=== PATIENT | female | born 1960 | race Caucasian/White ===

== ENCOUNTER 2020-10-02 10:26 | Outpatient (REF) | payer OTHER, SELFPAY ==
--- NOTE | ~2020-10-02 | MM_ITS ---
EXAMINATION: MM SCREENING DIGITAL BREAST TOMOSYNTHESIS, BILATERAL CLINICAL INFORMATION: Screening. Asymptomatic. Calcifications right breast at 2 locations status post stereotactic biopsy. Anterior site showed atypical ductal hyperplasia (stereotactic biopsy 03/07/2016). Surgical biopsy 03/23/2016 showed no residual atypical ductal hyperplasia or other malignancy. The lifetime risk of breast cancer based on the Tyrer-Cuzick Model is 14%. COMPARISON: Mammography: 05/08/2019, 05/02/2018, 04/13/2017, 11/28/2016, 02/12/2016 TECHNIQUE: Digital breast tomosynthesis is performed in both the craniocaudal and mediolateral oblique views along with computer-aided detection (CAD). Synthesized 2D images are generated from the tomosynthesis. FINDINGS: There are scattered areas of fibroglandular density (ACR BI-RADS breast composition Category b). There are no significant masses, abnormal calcifications, or other abnormalities. Parenchymal pattern is similar to prior studies. There is stable scarring anterior outer right breast consistent with the prior excisional biopsy. There is a biopsy clip marker also seen mid upper outer right breast as before. Neither breast shows significant mass or developing density or interval architectural abnormality. No abnormal calcifications. The axilla and skin contours are unremarkable. MM/MM tomosynthesis screening BI IMPRESSION: No mammographic evidence of malignancy. ASSESSMENT: BI-RADS 2: Benign RECOMMENDATION: Routine annual mammography screening. This patient's information was entered into a reminder system with a target due date for their next mammogram.
== END 2020-10-02 10:27 | disposition home or self-care (01) ==
LOC: HO.MAMMO 10:26
PROVIDERS: PCP Internal Medicine; Visit Provider Internal Medicine
DX: Z12.31 Encounter for screening mammogram for malignant neoplasm of breast (principal)
CPT/HCPCS: 77063; 77067

== ENCOUNTER 2021-03-24 08:49 | Outpatient (REF) | payer OTHER, SELFPAY ==
[2021-03-24 11:23] LABS: MANUAL DIFF FLAG NO
[2021-03-24 11:27] LABS: Basophils Percent Auto 0.8 % (0-2); Eosinophils Absolute Auto 0.1 X10*3/uL (0.0-0.4); Eosinophils Percent Auto 2.3 % (0-4); Hematocrit 37.3 % (37.0-47.0); Imm Gran Abs Auto 0.04 X10*3/uL (0.00-0.03); Imm Gran Pct Auto 0.8 % (0.0-0.4); Lymphocytes Absolute Auto 0.8 X10*3/uL (1.2-4.9); Lymphocytes Percent Auto 14.4 % (20-40); Mean Corpuscular HGB Conc 32.2 g/dl (31.0-35.0); Mean Corpuscular Hemoglobin 29.8 pg (27.0-33.0); Mean Corpuscular Volume 92.6 fL (80.0-98.0); Mean Platelet Volume 9.5 fL (9.4-12.3); Monocytes Absolute Auto 0.5 X10*3/uL (0.1-1.2); Monocytes Percent Auto 10.1 % (2-11); Neutrophils Absolute Auto 3.82 x10*3/uL (2.0-8.3); Neutrophils Percent Auto 71.6 % (45-73); Platelet Count 293 X10*3/uL (160-400); Red Blood Count 4.03 X10*6/uL (4.20-5.50); Red Cell Distribution Width 12.5 % (11.0-16.0); White Blood Count 5.3 X10*3/uL (4.8-10.8)
[2021-03-24 12:14] LABS: Vitamin D 25-OH Total 41.3 ng/mL (>30)
[2021-03-24 12:16] LABS: Alanine Aminotransferase 30 U/L (0-31); Anion Gap 13 (12-20); Aspartate Amino Transferase 14 U/L (5-31); Blood Urea Nitrogen 27 mg/dL (9-16); Calcium 9.4 mg/dL (8.4-10.2); Carbon Dioxide 26 mmol/L (22-29); Chloride 107 mmol/L (96-108); Cholesterol 285 mg/dL; Estimated Glomerular Filt Rate 49; Glucose Fasting 116 mg/dL (60-99); HDL Cholesterol 50 mg/dL; LDL Cholesterol Calculated 192 mg/dl; Potassium 4.4 mmol/L (3.3-5.1); Sodium 142 mmol/L (135-145); Triglycerides 216 mg/dL
== END 2021-03-24 08:50 | disposition home or self-care (01) ==
LOC: HO.HMGCLDS 08:49
PROVIDERS: PCP Internal Medicine; Visit Provider Internal Medicine
DX: Z00.01 Encounter for general adult medical examination with abnormal findings (principal); E78.5 Hyperlipidemia, unspecified; I10 Essential (primary) hypertension; Z78.0 Asymptomatic menopausal state; Z85.42 Personal history of malignant neoplasm of other parts of uterus
CPT/HCPCS: 36415; 80048; 80061; 82306; 84450; 84460; 85025

== ENCOUNTER 2021-10-03 14:22 | Outpatient (REF) | payer OTHER, SELFPAY ==
--- NOTE | ~2021-10-03 | MM_ITS ---
EXAMINATION: MM SCREENING DIGITAL BREAST TOMOSYNTHESIS, BILATERAL CLINICAL INFORMATION: Screening. Asymptomatic. Calcifications right breast at 2 locations status post stereotactic biopsy. Anterior site showed atypical ductal hyperplasia (stereotactic biopsy 03/07/2016). Surgical biopsy 03/23/2016 showed no residual atypical ductal hyperplasia or other malignancy. The lifetime risk of breast cancer based on the Tyrer-Cuzick Model is 6%. COMPARISON: Mammography: 10/02/2020, 05/08/2019, 05/02/2018 TECHNIQUE: Digital breast tomosynthesis is performed in both the craniocaudal and mediolateral oblique views along with computer-aided detection (CAD). Synthesized 2D images are generated from the tomosynthesis. FINDINGS: There are scattered areas of fibroglandular density (ACR BI-RADS breast composition Category b). There are no significant masses, abnormal calcifications, or other abnormalities. Breast tissue composition borders on heterogeneously dense. There is no developing density. Postsurgical changes again noted on right with some minor stable scarring upper outer quadrant and also right upper outer quadrant biopsy clip marker. MM/MM tomosynthesis screening BI IMPRESSION: No mammographic evidence of malignancy. Post surgical changes upper outer right breast. ASSESSMENT: BI-RADS 2: Benign RECOMMENDATION: Routine annual mammography screening. This patient's information was entered into a reminder system with a target due date for their next mammogram.
== END 2021-10-03 14:23 | disposition home or self-care (01) ==
LOC: HO.MAMMO 14:22
PROVIDERS: Visit Provider Internal Medicine
DX: Z12.31 Encounter for screening mammogram for malignant neoplasm of breast (principal)
CPT/HCPCS: 77063; 77067

== ENCOUNTER 2022-03-27 08:50 | Outpatient (REF) | payer OTHER, SELFPAY ==
[2022-03-27 12:06] LABS: Alanine Aminotransferase 18 U/L (0-31); Alkaline Phosphatase 94 U/L (39-117); Anion Gap 17 (12-20); Aspartate Amino Transferase 16 U/L (5-31); Bilirubin Total 0.3 mg/dL (0.0-1.0); Blood Urea Nitrogen 22 mg/dL (9-16); Calcium 8.2 mg/dL (8.4-10.2); Carbon Dioxide 22 mmol/L (22-29); Chloride 109 mmol/L (96-108); Estimated Glomerular Filt Rate 52; Glucose Fasting 112 mg/dL (60-99); Potassium 3.8 mmol/L (3.3-5.1); Sodium 144 mmol/L (135-145); Total Protein 6.6 g/dL (6.5-8.0)
[2022-03-27 12:38] LABS: Folate 11.4 ng/mL (> or = 4.0); Vitamin B12 1853 pg/mL (200-900)
== END 2022-03-27 08:51 | disposition home or self-care (01) ==
LOC: HO.HMGCLDS 08:50
PROVIDERS: PCP Internal Medicine; Visit Provider Internal Medicine
DX: Z00.01 Encounter for general adult medical examination with abnormal findings (principal); E78.2 Mixed hyperlipidemia; F41.1 Generalized anxiety disorder; I10 Essential (primary) hypertension; M85.80 Other specified disorders of bone density and structure, unspecified site; S32.040A Wedge compression fracture of fourth lumbar vertebra, initial encounter for closed fracture; Z85.42 Personal history of malignant neoplasm of other parts of uterus
CPT/HCPCS: 36415; 80053; 82607; 82746

== ENCOUNTER 2022-04-19 10:13 | Outpatient (REF) | payer OTHER, SELFPAY ==
--- NOTE | ~2022-04-19 | MM_ITS ---
EXAMINATION: BONE DENSITOMETRY CLINICAL INDICATION: Wedge compression fracture of 4th lumbar vertebra. COMPARISON: None (current study represents initial baseline exam). TECHNIQUE: Using a [employer]aast DXA System (software version: 13.1) manufactured by [employer], dual-energy x-ray absorptiometry was performed of the lumbar spine and left hip. The images are of good technical quality. Summary results are attached. FINDINGS: AP SPINE L1-L2 (excluding L3 and L4): The data of L1-L4 has been changed to exclude the L3 and L4 vertebral bodies, because degenerative changes at these levels as well as L4 compression deformity which may cause overestimation of lumbar spine density. BMD 0.629 g/cm2, Z-score -2.1, T-score -2.9, osteoporosis. LEFT FEMUR, NECK: BMD 0.787 g/cm2, Z-score -1.3, T-score -1.8, osteopenia. LEFT FEMUR, TOTAL: BMD 0.872 g/cm2, Z-score -1.9, T-score -2.4, osteopenia. IDENTIFIED RISK FACTORS: Menopause, hysterectomy, history of fracture (adult), bilateral oophorectomy. HISTORY OF FRACTURE: Pelvis, spine. MEDICATIONS: Vitamin D. MM/XR DEXA axial skeleton IMPRESSION: 1. DIAGNOSIS: Osteoporosis based on the lowest T-score value of -2.9 in the lumbar spine applying World Health Organization criteria. 2. 10-YEAR FRACTURE RISK PREDICTION, FRAX: According to the guidelines, FRAX calculation should only be performed on patients in the osteopenia bone density category. Therefore, FRAX was not performed on this patient. 3. Treatment Recommendations: NOF guidelines recommend consideration for treatment in postmenopausal women and men age 50 and older presenting with the following: -A hip or vertebral (clinical or morphometric) fracture. -T-score less than or equal to -2.5 at the femoral neck or spine after appropriate evaluation to exclude secondary causes. -Low bone mass at the hip or spine and a 10-year fracture probability by FRAX of greater than or equal to 3% for hip fracture or greater than or equal to 20% for major osteoporotic fracture based on the [place] adapted WHO algorithm. 4. Other Recommendations: All treatment decisions require clinical judgment and consideration of individual patient factors, including patient preferences, comorbidities, previous drug use, risk factors not captured in the FRAX model (e.g. frailty, falls, vitamin D deficiency, increased bone turnover, interval significant decline in bone density) and possible under or overestimation of fracture risk by FRAX. Additional medical evaluation for secondary cause of low bone mineral density may be appropriate. FUTURE SCAN RECOMMENDATION: People with diagnosed cases of osteoporosis or at high risk for fracture should have regular bone mineral density tests. For patients eligible for Medicare, routine testing is allowed once every 2 years. The testing frequency can be increased to one year for patients who have rapidly progressing disease, those who are receiving or discontinuing medical therapy to restore bone mass, or have additional risk factors.
== END 2022-04-19 10:14 | disposition home or self-care (01) ==
LOC: HO.MAMMO 10:13
PROVIDERS: Visit Provider Internal Medicine
DX: Z13.820 Encounter for screening for osteoporosis (principal); M85.80 Other specified disorders of bone density and structure, unspecified site; S32.040A Wedge compression fracture of fourth lumbar vertebra, initial encounter for closed fracture; Z92.3 Personal history of irradiation; Z78.0 Asymptomatic menopausal state
CPT/HCPCS: 77080

== ENCOUNTER → 2022-05-12 14:52 | Outpatient (BNVA) | payer OTHER, SELFPAY | PROVIDERS: PCP Internal Medicine; Visit Provider Internal Medicine Endocrinology, Diabetes & Metabolism | DX: Z12.31 Encounter for screening mammogram for malignant neoplasm of breast (principal) ==

== ENCOUNTER 2022-07-21 10:39 | Outpatient (REF) | payer OTHER, SELFPAY ==
[2022-07-21 14:01] LABS: MANUAL DIFF FLAG NO
[2022-07-21 14:38] LABS: Basophils Percent Auto 0.6 % (0-2); Eosinophils Percent Auto 0.2 % (0-4); Hemoglobin 12.9 g/dl (12.0-16.0); Imm Gran Abs Auto 0.02 X10*3/uL (0.00-0.03); Imm Gran Pct Auto 0.4 % (0.0-0.4); Lymphocytes Absolute Auto 0.8 X10*3/uL (1.2-4.9); Lymphocytes Percent Auto 17.3 % (20-40); Mean Corpuscular HGB Conc 33.1 g/dl (31.0-35.0); Mean Corpuscular Hemoglobin 29.6 pg (27.0-33.0); Mean Corpuscular Volume 89.4 fL (80.0-98.0); Mean Platelet Volume 9.8 fL (9.4-12.3); Monocytes Absolute Auto 0.4 X10*3/uL (0.1-1.2); Monocytes Percent Auto 9.2 % (2-11); Neutrophils Absolute Auto 3.4 x10*3/uL (2.0-8.3); Neutrophils Percent Auto 72.3 % (45-73); Platelet Count 243 X10*3/uL (160-400); Red Blood Count 4.36 X10*6/uL (4.20-5.50); Red Cell Distribution Width 13.1 % (11.0-16.0); White Blood Count 4.7 X10*3/uL (4.8-10.8)
[2022-07-21 14:46] LABS: Estimated Average Glucose 120 mg/dL; Hemoglobin A1c % 5.8 %
[2022-07-21 15:13] LABS: Albumin Level 3.9 g/dL (3.5-5.0); Calcium 8.2 mg/dL (8.4-10.2); Cholesterol 230 mg/dL; HDL Cholesterol 53 mg/dL; LDL Cholesterol Calculated 142 mg/dl; Phosphorus 3.2 mg/dL (2.7-4.5); Triglycerides 177 mg/dL; Vitamin D 25-OH Total 47.6 ng/mL (>30)
[2022-07-24 23:33] LABS: Prot Elec - Albumin 3.6 g/dL (3.8-4.8); Prot Elec - Alpha1 0.3 g/dL (0.2-0.3); Prot Elec - Alpha2 0.8 g/dL (0.5-0.9); Prot Elec - Beta 1 0.5 g/dL (0.4-0.6); Prot Elec - Beta 2 0.3 g/dL (0.2-0.5); Prot Elec - Gamma 0.8 g/dL (0.8-1.7); Prot Elec - Total Protein 6.3 g/dL (6.1-8.1)
== END 2022-07-21 10:40 | disposition home or self-care (01) ==
LOC: HO.HMGCLDS 10:39
PROVIDERS: Absent Provider Internal Medicine Endocrinology, Diabetes & Metabolism; PCP Internal Medicine; Visit Provider Internal Medicine
DX: M81.0 Age-related osteoporosis without current pathological fracture (principal); E78.2 Mixed hyperlipidemia; N95.9 Unspecified menopausal and perimenopausal disorder; R73.01 Impaired fasting glucose; S32.040A Wedge compression fracture of fourth lumbar vertebra, initial encounter for closed fracture; I10 Essential (primary) hypertension
CPT/HCPCS: 36415; 80061; 82040; 82306; 82310; 83036; 84100; 84165; 85025; 86335

== ENCOUNTER 2022-07-24 10:30 | Outpatient (REF) | payer OTHER, SELFPAY ==
[2022-07-24 12:36] LABS: Creatinine, mg/dL 106.29
[2022-07-24 15:13] LABS: Creatinine, 24Hr Urine 0.6 G/Day (1.0-2.0); Total Volume 24 Hour Urine 525 mL
[2022-07-25 11:49] LABS: Calcium (PTHI) 8.3 mg/dL (8.6-10.4); PTHI 69 pg/mL (16-77)
[2022-07-26 18:39] LABS: Calcium, 24 Hr Urine 4 mg/24 h; Calcium/Creatinine Ratio 7 mg/g creat (30-275); Creatinine 24Hr Urine 0.52 g/24 h (0.50-2.15)
== END 2022-07-24 10:31 | disposition home or self-care (01) ==
LOC: HO.HMGCLDS 10:30
PROVIDERS: PCP Internal Medicine; Visit Provider Internal Medicine Endocrinology, Diabetes & Metabolism
DX: M85.80 Other specified disorders of bone density and structure, unspecified site (principal); M81.0 Age-related osteoporosis without current pathological fracture
CPT/HCPCS: 36415; 82340; 82570; 83970

== ENCOUNTER → 2022-09-05 16:24 | Outpatient (BNVA) | payer OTHER, SELFPAY | PROVIDERS: PCP Internal Medicine; Visit Provider Internal Medicine Endocrinology, Diabetes & Metabolism | DX: M81.0 Age-related osteoporosis without current pathological fracture (principal) | CPT/HCPCS: 99212 ==

== ENCOUNTER 2022-11-29 12:12 | Outpatient (REF) | payer OTHER, SELFPAY ==
[2022-11-29 14:33] LABS: Albumin Level 3.8 g/dL (3.5-5.0); Calcium 8.9 mg/dL (8.4-10.2)
== END 2022-11-29 12:13 | disposition home or self-care (01) ==
LOC: HO.HMGCLDS 12:12
PROVIDERS: PCP Internal Medicine; Visit Provider Internal Medicine Endocrinology, Diabetes & Metabolism
DX: M81.0 Age-related osteoporosis without current pathological fracture (principal)
CPT/HCPCS: 36415; 82040; 82310

== ENCOUNTER 2022-12-04 12:57 | Outpatient (AMB) | payer OTHER, SELFPAY ==
--- NOTE | 2022-12-04 13:07 | MHC.OFFVIS ---
Intake Vital Signs 12/04/22 13:09 Height 5 ft 1 in Weight 218 lb 4.122 oz BMI 41.2 BP 132/82 Blood Pressure Location Lt brachial Position Sitting Pulse 83 Pulse Source Pulse Oximeter Pulse Oximetry (%) 93 Oxygen Delivery Method Room Air Intake Visit Reasons: f/u osteoporosis /hypocalcemia Intake Note: Patient present for Osteoporosis and Hypocalcemia follow up visit. Tanning Wheel Filler Required: No Allergies No Known Allergies [No Known Allergies*] Allergy (Verified 12/04/22 13:10) Medication List - Last Reconciled 12/04/22 by Maxi Manley MD amlodipine 5 mg PO DAILY aspirin (Adult Low Dose Aspirin) 81 mg PO DAILY cholecalciferol (vitamin D3) 50 mcg PO DAILY cyanocobalamin (vitamin B-12) 3,000 mcg PO DAILY [full right leg compression wrap fax to [phone] NS] paroxetine HCl 30 mg PO QAM rosuvastatin 5 mg PO Q2D 90 days HPI HPI Comments History of Present Illness Details 62 YO Female with PMHx endometrial Ca in past with chemo and RT treated at [facility] . RT in [id number] /chemo 2019 is seen in consultation at the request of PCP for Osteoporosis. First diagnosed in recently . Not Received treatment in the past History of pathologic fracture wedge compression fx of L4 Fx of R pubic symphis . Underwent biopsy of L4 with no metastasis detected Has several servings of dietary calcium per day in the form of milk or cheese . Not Takes Calcium supplement Takes 2000 IU of Vitamin D daily. Takes PPI Prilosec , anticoagulant, -antiepileptic or -glucocorticoid medication. Does weight bearing exercise 2 days per week in the form of swimming . 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 UTD on dental cleanings and sees dentist every 6 months. No planned upcoming dental work or extractions. Dexa 04/19/22 FINDINGS: AP SPINE L1-L2 (excluding L3 and L4): The data of L1-L4 has been changed to exclude the L3 and L4 vertebral bodies, because degenerative changes at these levels as well as L4 compression deformity which may cause overestimation of lumbar spine density. BMD 0.629 g/cm2, Z-score -2.1, T-score -2.9, osteoporosis. LEFT FEMUR, NECK: BMD 0.787 g/cm2, Z-score -1.3, T-score -1.8, osteopenia. LEFT FEMUR, TOTAL: BMD 0.872 g/cm2, Z-score -1.9, T-score -2.4, osteopenia. IDENTIFIED RISK FACTORS: Menopause, hysterectomy, history of fracture (adult), bilateral oophorectomy. HISTORY OF FRACTURE: Pelvis, spine. MEDICATIONS: Vitamin D. MM/XR DEXA axial skeleton IMPRESSION: 1. DIAGNOSIS: Osteoporosis based on the lowest T-score value of -2.9 in the lumbar spine applying World Health Organization criteria.? DXA dated []: Labs: Secondary workup was negative except for low serum calcium with normal 25 hydroxy vitamin-D and low 24 hour urine for calcium. Repeat calcium on calcium supplementation was normal [facility] Medical History Annual visit for general adult medical examination with abnormal findings Compression fracture of L4 vertebra Dyslipidemia Endometrial carcinoma Essential hypertension Fracture of pubic ramus Generalized anxiety disorder Hx of cancer of uterus Hx of radiation therapy Lymphedema Mixed dyslipidemia Osteopenia Osteoporosis of lumbar spine Surgical History History of lumpectomy of right breast History of total abdominal hysterectomy and bilateral salpingo-oophorectomy Family History Father Myocardial infarction HTN (hypertension) CVD (cardiovascular disease) Mother HTN (hypertension) Brother No problems noted. Son Mental health disorder Substance use disorder Daughter No problems noted. Social History Household Members: Spouse Household Members Other:: Housing: House Alcohol intake: current Alcohol intake frequency: a few times a month Patient Tobacco Use Status: Former Tobacco user (7 years ago ) Tobacco use type: Cigarette Cigarette Packs Per Day: 1 Years Smoked: 30 years e-Cigarette/Vaping Use: Never Used Current occupational status: unemployed Cognitive needs: No Hearing needs: No Vision needs: Yes Physical Exam Vital Signs: Last Vital Signs Pulse 83 12/04/22 13:09 BP 132/82 12/04/22 13:09 Pulse Ox 93 12/04/22 13:09 Oxygen Delivery Method Room Air 12/04/22 13:09 BMI result Body Mass Index 41.2 Assessment & Plan Assessment & Plan (1) Osteoporosis of lumbar spine: Code(s): M81.0 - Age-related osteoporosis without current pathological fracture Plan: This is a 62-year-old white female with a history of osteoporosis and compression fracture of L4 and pelvic fracture in the setting of endometrial cancer with chemo and radiation therapy. Secondary workup revealed low serum calcium and low 24 hour urine for calcium. Metastases had ruled out. The plan is to prescribe Reclast 5 mg IV yearly. Will need to check a basic metabolic panel with calcium level within week prior to infusion Coding Level of Care Code Est Pt Level 3 (13076) Diagnoses Osteoporosis of lumbar spine M81.0
[2022-12-04 13:09] VITALS: BP 132/82; PULSE 83; O2SAT 93; BMI 41.2
== END 2022-12-04 13:40 | disposition home or self-care (01) ==
PROVIDERS: PCP Internal Medicine; Referring Provider Internal Medicine; Visit Provider Internal Medicine Endocrinology, Diabetes & Metabolism
DX: M81.0 Age-related osteoporosis without current pathological fracture (principal)
CPT/HCPCS: 99213

== ENCOUNTER → 2022-12-04 12:57 | Outpatient (BNVA) | payer OTHER, SELFPAY | PROVIDERS: Visit Provider Internal Medicine Endocrinology, Diabetes & Metabolism | DX: M81.0 Age-related osteoporosis without current pathological fracture (principal) | CPT/HCPCS: 99212 ==

== ENCOUNTER 2022-12-18 11:31 | Outpatient (REF) | payer OTHER, SELFPAY ==
[2022-12-18 14:37] LABS: Albumin Level 3.9 g/dL (3.5-5.0); Anion Gap 17 (12-20); Blood Urea Nitrogen 18 mg/dL (9-16); Calcium 7.9 mg/dL (8.4-10.2); Carbon Dioxide 23 mmol/L (22-29); Chloride 107 mmol/L (96-108); Estimated Glomerular Filt Rate 48; Glucose Random 106 mg/dL (60-115); Sodium 143 mmol/L (135-145)
== END 2022-12-18 11:32 | disposition home or self-care (01) ==
LOC: HO.HMGCLDS 11:31
PROVIDERS: PCP Internal Medicine; Visit Provider Internal Medicine Endocrinology, Diabetes & Metabolism
DX: M85.80 Other specified disorders of bone density and structure, unspecified site (principal)
CPT/HCPCS: 36415; 80048; 82040; 82310

== ENCOUNTER 2023-02-02 09:11 | Outpatient (AMB) | payer OTHER, SELFPAY ==
[2023-02-02 09:19] VITALS: BP 138/80; PULSE 80; O2SAT 98; BMI 37.2
--- NOTE | 2023-02-02 09:19 | A.OFFPC_ITS ---
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: No Accompanied by: Self / Same As Patient Allergies No Known Allergies [No Known Allergies*] Allergy (Verified 02/13/23 00:32) Medication List - Last Reconciled 02/13/23 by Amy Schultz MD amlodipine 5 mg PO DAILY aspirin (Adult Low Dose Aspirin) 81 mg PO DAILY cholecalciferol (vitamin D3) 50 mcg PO DAILY cyanocobalamin (vitamin B-12) 3,000 mcg PO DAILY famotidine 40 mg PO DAILY [full right leg compression wrap fax to [phone] NS] magnesium oxide 500 mg PO DAILY paroxetine HCl 30 mg PO QAM rosuvastatin 5 mg PO Q2D 90 days Tobacco use date assessed: 10/20/22 Dental Screening Dental Screen Date: 02/02/23 Did you have a dental visit in the last 12 months?: Yes Did you have a dental problem in the last 6 months where you did not have access to dental care?: No Was dental information given to patient?: Patient has dentist HPI annual PE HPI Details 63-year-old lady with history of endomet rial carcinoma with lymphedema, osteoporosis of lumbar spine, history of fracture of pubic ramus and compression fracture of L4 vertebra, has mixed dyslipidemia, hypertension and generalized anxiety disorder, here today for her physical exam. Up-to-date with her bone density scan done last year, but is overdue to get her screening mammogram, missed her appointment for this year, will reschedule.. She is currently being seen by endocrine clinic, with regards to her osteoporosis, plan is to start IV Reclast. States that she has been feeling well, with no new complaints at present time. [facility] Medical History (Updated 02/13/23 @ 00:55 by Amy Schultz MD) Hypomagnesemia Colon cancer screening Lymphedema Osteoporosis of lumbar spine Hx of radiation therapy Osteopenia Annual visit for general adult medical examination with abnormal findings Fracture of pubic ramus Compression fracture of L4 vertebra Mixed dyslipidemia Essential hypertension Hx of cancer of uterus Endometrial carcinoma Dyslipidemia Generalized anxiety disorder Surgical History History of lumpectomy of right breast History of total abdominal hysterectomy and bilateral salpingo-oophorectomy Family History Father Myocardial infarction HTN (hypertension) CVD (cardiovascular disease) Mother HTN (hypertension) Brother No problems noted. Son Mental health disorder Substance use disorder Daughter No problems noted. Social History Household Members: Spouse Household Members Other:: Housing: House Alcohol intake: current Alcohol intake frequency: a few times a month Patient Tobacco Use Status: Former Tobacco user Tobacco use type: Cigarette Cigarette Packs Per Day: 1 Years Smoked: 30 years e-Cigarette/Vaping Use: Never Used Current occupational status: unemployed Cognitive needs: No Hearing needs: No Vision needs: Yes Questionnaire PHQ-9 Over the last 2 weeks, how often have you been bothered by any of the following problems? Depression Screening Interpretation: Negative Source: Developed by Drs. Maxi Liu, Linh Davis, Gumaro Huston and colleagues, with an educational evangelist from [employer]. Thrive Questionnaire Date Thrive assessed: 10/20/22 I am a: Patient What is your living situation today?: I have a steady place to live Within the past 12 months, did the food you bought not last and you didn't have the money to get more?: Never true Within the past 12 months, did you worry whether your food would run out before you got money to buy more?: Never true Please select the resources that you would like help with: None AUDIT C Alcohol Use Questionnaire (AUDIT-C) 1. How often do you have a drink containing alcohol?: Monthly or less 2. How many drinks containing alcohol do you have on a typical day when you are drinking?: 1 or 2 3. How often do you have six or more drinks on one occasion?: Never Total Score: 1 YANY-7 AMB Questionnaire YANY-7 Date YANY - 7 assessed: 10/20/22 Feeling nervous, anxious, or on edge: 1 = Several days Not being able to stop or control worryin = Several days Worrying too much about different things: 1 = Several days Trouble relaxin = Not at all Being so restless that it is hard to sit still: 0 = Not at all Becoming easily annoyed or irritable: 0 = Not at all Feeling afraid as if something awful might happen: 1 = Several days Total YANY-7 score (0-4 normal; 5-9 mild; 10-14 moderate; 15-21 severe): 4 Source: Developed by Drs. Maxi Liu, Linh Davis, Gumaro Huston and colleagues, with an educational evangelist from [employer]. 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 ENT Reports Normal hearing present, Denies dizziness, Denies headache(s), Denies nasal congestion, Denies nasal discharge and Denies sore throat Card Denies chest pain, Reports leg edema (Diffuse mild swelling in right lower extremity), Denies lightheadedness, Denies palpitations and Denies dyspnea Resp Denies chest congestion, Denies cough, Denies dyspnea and Denies wheezing GI Denies abdominal pain, Denies change in bowel habits and Denies heartburn Details: Goes to [facility] for every 6 months pelvic follow-up with Pap Reports urinary incontinence, Denies vaginal discharge and Denies vaginal pruritus Musc Reports back pain (Recurrent low back pain), Denies muscle weakness, Denies numbness, Reports radiating pain into limb and Denies stiffness Skin/Breast Denies breast swelling, Denies breast pain, Denies breast mass, Denies dry skin, Denies lesions and Denies rash Neuro Reports Normal hearing present, Denies behavioral changes, Denies dizziness, De nies headache(s), Denies numbness, Denies Sensory deficit (Neuro) and Denies weakness Psych Denies anxiety (Controlled on present treatment), Denies behavioral changes, Denies depression, Denies difficulty concentrating and Denies anhedonia Endo Denies fatigue, Denies polydipsia, Denies polyuria and Denies palpitations Mahin/Lymph Denies easy bruising Aller/Immun Denies seasonal rhinorrhea and Denies wheezing Physical exam (Primary Care) Vital Signs: Last Vital Signs Pulse 80 02/02/23 09:19 BP 138/80 02/02/23 09:19 Pulse Ox 98 02/02/23 09:19 BMI result Body Mass Index 37.2 Tobacco/Smoking Status: Tobacco use Status Tobacco use date assessed 10/20/22 02/02/23 09:22 Patient Tobacco Use Status Former Tobacco user 02/02/23 09:22 Tobacco use type Cigarette 02/02/23 09:22 e-Cigarette/Vaping Use Never Used 02/02/23 09:22 Depression Screening Interpretation: Negative Thrive Assessment: Date of Thrive Assessment Date Thrive assessed 10/20/22 02/02/23 09:22 Const Other: Alert, oriented x3, pleasant, no acute cardiorespiratory distress, ambulatory normal gait Nutritional Appearance: obese Orientation/consciousness: patient oriented x3 HENMT Head: Yes normocephalic Ears: hearing grossly normal bilaterally, external ears normal, TM's normal bilaterally and EAC's normal General nose exam: Normal external nose present and No nasal discharge present Mouth: Normal oral and palatal mucosa present, oropharynx normal and moist mucous membranes Eyes General: appearance normal, both eyes and all related structures Neck Neck: Yes full ROM, Yes no lymphadenopathy, Yes supple and No tender Thyroid: Thyroid normal Chest Chest palpation & inspection: normal inspection of the chest and normal palpation of entire chest wall Breast/axilla inspection: normal inspection of the breasts Breast/axilla palpation: normal palpation of the breasts and normal palpation of the axillae Resp Auscultation: clear to auscultation bilaterally Cardio Other: S1-S2 present regular rate and rhythm GI Other: Well-healed surgical scar noted on infraumbilical area Palpation (GI): Soft to palpation, nontender, no guarding, no hernias and no masses General: Yes no CVA tenderness Back/Spine/Pelvis Back: no CVA tenderness and No back tenderness Skin General skin exam: no rashes or lesions noted Neuro General: patient oriented x3, moves all extremities and normal sensation to monofilament Cranial nerves: Yes Normal hearing present Sensory Exam: No Sensory deficit (Neuro) Extrem Other: Wears compression stockings for her lymphedema on right lower extremity General: Yes no joint enlargement, Yes no pedal edema and Yes no calf tenderness Psych Appearance: grossly normal and well kempt Mental Status: mental status grossly normal Speech and movement: Normal speech and movement present Affect: normal affect Attitude: cooperative Thought process: Normal thought process present Assessment and Plan Assessment & Plan (1) Colon cancer screening: Code(s): Z12.11 - Encounter for screening for malignant neoplasm of colon Plan: Referred to GI clinic in [place] for her colon cancer screen (2) Skin cancer screening: Code(s): Z12.83 - Encounter for screening for malignant neoplasm of skin Plan: dermatology consult ordered for skin cancer screening. (3) Annual visit for general adult medical examination with abnormal findings: Code(s): Z00.01 - Encounter for general adult medical examination with abnormal findings Plan: Fasting labs ordered today. Referred for screening mammogram, up-to-date with her bone density scan done last year, referred also to GI Clinic for her screening colonoscopy. Advised to go to a dentist for her routine dental prophylaxis every 6 months and see an eye doctor every 2 years for an eye exam. Referred to dermatology for skin cancer screening. Reminded to get her yearly flu shot and COVID booster coming up later this month. Recommend to get vaccinated against shingles vaccine, up-to-date with her Tdap. (4) Mixed dyslipidemia: Code(s): E78.2 - Mixed hyperlipidemia Plan: fasting lipid profile ordered today . Continue with rosuvastatin 5 mg every other day , in addition to adherence to low-cholesterol diet and regular exercise, at least 30 minutes 3 to 4 times a week. Advised patient to make healthy food choices, eat more fruits, vegetables, whole grains, wild caught fish and low-fat dairy. Limit amount of meat and fried or fatty food products, as well as processed foods and fast foods. (5) Osteoporosis of lumbar spine: Code(s): M81.0 - Age-related osteoporosis without current pathological fracture Plan: Seen by Dr. Manley who is planning to start her on IV Reclast (6) Essential hypertension: Code(s): I10 - Essential (primary) hypertension Plan: Blood pressure at goal of less than 130/80. Continue with current medication. Reinforced importance of following a low sodium diet, getting regular exercise, and lowering stress levels. (7) Generalized anxiety disorder: Code(s): F41.1 - Generalized anxiety disorder Plan: Stable controlled on paroxetine 30 mg 1 tablet daily in a.m. Orders: Referrals Gastroenterology Referral Z12.11 - Encounter for screening for malignant neoplasm of colon Dermatology Referral Z12.83 - Encounter for screening for malignant neoplasm of skin Coding Level of Care Code Est Pt Prev Care 40-64y(51569) Diagnoses Colon cancer screening Z12.11 Skin cancer screening Z12.83 Annual visit for general adult medical examination with abnormal findings Z00.01 Mixed dyslipidemia E78.2 Osteoporosis of lumbar spine M81.0 Essential hypertension I10 Generalized anxiety disorder F41.1
== END 2023-02-02 10:46 | disposition home or self-care (01) ==
PROVIDERS: PCP Internal Medicine; Visit Provider Internal Medicine
DX: Z00.00 Encounter for general adult medical examination without abnormal findings (principal); E78.2 Mixed hyperlipidemia; M81.0 Age-related osteoporosis without current pathological fracture; I10 Essential (primary) hypertension; F41.1 Generalized anxiety disorder
CPT/HCPCS: 99396

== ENCOUNTER 2023-02-02 10:10 | Outpatient (REF) | payer OTHER, SELFPAY ==
[2023-02-02 14:27] LABS: Vitamin D 25-OH Total 80.9 ng/mL (>30)
[2023-02-02 14:42] LABS: Vitamin B12 748 pg/mL (200-900)
[2023-02-02 14:49] LABS: Alanine Aminotransferase 9 U/L (0-31); Anion Gap 12 (12-20); Aspartate Amino Transferase 14 U/L (5-31); Blood Urea Nitrogen 21 mg/dL (9-16); Calcium 9.6 mg/dL (8.4-10.2); Carbon Dioxide 27 mmol/L (22-29); Chloride 107 mmol/L (96-108); Cholesterol 232 mg/dL (<200); Estimated Glomerular Filt Rate 54; Glucose Fasting 109 mg/dL (60-99); HDL Cholesterol 57 mg/dL (>40); LDL Cholesterol Calculated 139 mg/dL (<100); Magnesium 1.2 mg/dL (1.6-2.6); Potassium 4.4 mmol/L (3.3-5.1); Sodium 142 mmol/L (135-145); Triglycerides 184 mg/dL (<150)
== END 2023-02-02 10:11 | disposition home or self-care (01) ==
LOC: HO.HMGCLDS 10:10
PROVIDERS: Absent Provider Internal Medicine Endocrinology, Diabetes & Metabolism; PCP Internal Medicine; Visit Provider Internal Medicine
DX: M81.0 Age-related osteoporosis without current pathological fracture (principal); E78.2 Mixed hyperlipidemia; I10 Essential (primary) hypertension; F41.1 Generalized anxiety disorder
CPT/HCPCS: 36415; 80048; 80061; 82306; 82607; 82746; 83735; 84450; 84460

== ENCOUNTER 2023-02-14 13:37 | Outpatient (REF) | payer OTHER, SELFPAY ==
[2023-02-14 16:23] LABS: Magnesium 1.8 mg/dL (1.6-2.6)
== END 2023-02-14 13:38 | disposition home or self-care (01) ==
LOC: HO.HMGCLDS 13:37
PROVIDERS: PCP Internal Medicine; Visit Provider Internal Medicine
DX: E83.42 Hypomagnesemia (principal)
CPT/HCPCS: 36415; 83735

== ENCOUNTER 2023-03-06 15:18 | Outpatient (REF) | payer OTHER, SELFPAY ==
[2023-03-06 16:50] LABS: Calcium 9.5 mg/dL (8.4-10.2); Magnesium 1.5 mg/dL (1.6-2.6)
== END 2023-03-06 15:19 | disposition home or self-care (01) ==
LOC: HO.HMGCLDS 15:18
PROVIDERS: PCP Internal Medicine; Visit Provider Internal Medicine Endocrinology, Diabetes & Metabolism
DX: M85.80 Other specified disorders of bone density and structure, unspecified site (principal); E83.42 Hypomagnesemia
CPT/HCPCS: 36415; 82310; 83735

== ENCOUNTER 2023-03-09 08:39 | Outpatient (REF) | payer OTHER, SELFPAY ==
[2023-03-09 09:21] LABS: Blood Urea Nitrogen 22 mg/dL (9-16); Estimated Glomerular Filt Rate 57
== END 2023-03-09 08:40 | disposition home or self-care (01) ==
LOC: HO.MDS 08:39
PROVIDERS: Visit Provider Internal Medicine Endocrinology, Diabetes & Metabolism
DX: M81.0 Age-related osteoporosis without current pathological fracture (principal)
CPT/HCPCS: 36415; 82565; 84520; 96374; J3489

== ENCOUNTER 2023-03-16 13:01 | Outpatient (REF) | payer OTHER, SELFPAY ==
--- NOTE | ~2023-03-16 | MM_ITS ---
EXAMINATION: MM SCREENING DIGITAL BREAST TOMOSYNTHESIS, BILATERAL CLINICAL INFORMATION: Screening. Asymptomatic. The patient has a history of atypical ductal hyperplasia on prior right stereotactic biopsies. COMPARISON: Mammography: This study is compared with prior exams dating back to 2017. TECHNIQUE: Digital breast tomosynthesis is performed in both the craniocaudal and mediolateral oblique views along with computer-aided detection (CAD). Synthesized 2D images are generated from the tomosynthesis. FINDINGS: There are scattered areas of fibroglandular density (ACR BI-RADS breast composition Category b). There are no significant masses, abnormal calcifications, or other abnormalities. There is tissue marker present in the right breast from prior benign percutaneous biopsy. There is postsurgical change at the lateral aspect of the right breast. MM/MM tomosynthesis screening BI IMPRESSION: No mammographic evidence of malignancy. ASSESSMENT: BI-RADS BI-RADS 2 - Benign Findings RECOMMENDATION: Routine annual mammography screening. 1 year F/U This examination should not preclude the clinical evaluation of a suspicious palpable abnormality. This patient's information was entered into a reminder system with a target due date for their next mammogram.
== END 2023-03-16 13:02 | disposition home or self-care (01) ==
LOC: HO.MAMMO 13:01
PROVIDERS: PCP Internal Medicine; Visit Provider Internal Medicine
DX: Z12.31 Encounter for screening mammogram for malignant neoplasm of breast (principal)
CPT/HCPCS: 77063; 77067

== ENCOUNTER → 2023-03-16 13:15 | Outpatient (BNV) | payer OTHER, SELFPAY | PROVIDERS: PCP Internal Medicine; Visit Provider Radiology Diagnostic Radiology | DX: Z12.31 Encounter for screening mammogram for malignant neoplasm of breast (principal) | CPT/HCPCS: 77063; 77067 ==

== ENCOUNTER 2023-10-29 12:43 | Outpatient (AMB) | payer OTHER, SELFPAY ==
[2023-10-29 12:52] VITALS: BP 150/90; PULSE 81; BMI 36.7
--- NOTE | 2023-10-29 12:52 | A.OFFVIS_ITS ---
Vital Signs 10/29/23 12:52 Height 5 ft 1 in Weight 194 lb 7.163 oz BMI 36.7 BP 150/90 H Blood Pressure Location Lt brachial Position Sitting Pulse 81 Pulse Source Pulse Oximeter Intake Visit Reasons: f/u osteoporosis /hypocalcemia-confirmed Intake Note: Patient presents today for Osteoporosis and Hypocalcemia follow up. Conference Interpreter Required: No Accompanied by: Mother Allergies No Known Allergies [No Known Allergies*] Allergy (Verified 10/29/23 12:56) Medication List - Last Reconciled 10/29/23 by Maxi Manley MD amlodipine 5 mg PO DAILY aspirin (Adult Low Dose Aspirin) 81 mg PO DAILY cholecalciferol (vitamin D3) 50 mcg PO DAILY cyanocobalamin (vitamin B-12) 3,000 mcg PO DAILY famotidine 40 mg PO DAILY [full right leg compression wrap fax to [phone] NS] magnesium oxide 500 mg PO DAILY paroxetine HCl 30 mg PO QAM rosuvastatin 5 mg PO Q2D 90 days HPI Comments Details: 63 YO Female with PMHx endometrial Ca in past with chemo and RT treated at [facility] . RT in [id number] /chemo 2019 is seen in consultation at the request of PCP for Osteoporosis. First diagnosed in recently . Not Received treatment in the past History of pathologic fracture wedge compression fx of L4 Fx of R pubic symphis . Underwent biopsy of L4 with no metastasis detected Has several servings of dietary calcium per day in the form of milk or cheese . Not Takes Calcium supplement Takes 2000 IU of Vitamin D daily. Takes PPI Prilosec , anticoagulant, -antiepileptic or -glucocorticoid medication. Does weight bearing exercise 2 days per week in the form of swimming . Fracture history: see above Height loss: [] VERIFICATION MANAGER history: menopause 52 nl menses before underwent hysterectomy in 2019 Denies history of Kidney stones: Denies family history of Osteoporosis or hip fracture. UTD on dental cleanings and sees dentist every 6 months. No planned upcoming dental work or extractions. Dexa 04/19/22 FINDINGS: AP SPINE L1-L2 (excluding L3 and L4): The data of L1-L4 has been changed to exclude the L3 and L4 vertebral bodies, because degenerative changes at these levels as well as L4 compression deformity which may cause overestimation of lumbar spine density. BMD 0.629 g/cm2, Z-score -2.1, T-score -2.9, osteoporosis. LEFT FEMUR, NECK: BMD 0.787 g/cm2, Z-score -1.3, T-score -1.8, osteopenia. LEFT FEMUR, TOTAL: BMD 0.872 g/cm2, Z-score -1.9, T-score -2.4, osteopenia. IDENTIFIED RISK FACTORS: Menopause, hysterectomy, history of fracture (adult), bilateral oophorectomy. HISTORY OF FRACTURE: Pelvis, spine. MEDICATIONS: Vitamin D. MM/XR DEXA axial skeleton IMPRESSION: 1. DIAGNOSIS: Osteoporosis based on the lowest T-score value of -2.9 in the lumbar spine applying World Health Organization criteria.? DXA dated []: Labs: Secondary workup was negative except for low serum calcium with normal 25 hydroxy vitamin-D and low 24 hour urine for calcium. Repeat calcium on calcium supplementation was normal. Received a dose of Reclast last year No fx since last visit [facility] Medical History (Updated 02/13/23 @ 00:55 by Amy Schultz MD) Hypomagnesemia Colon cancer screening Lymphedema Osteoporosis of lumbar spine Hx of radiation therapy Osteopenia Annual visit for general adult medical examination with abnormal findings Fracture of pubic ramus Compression fracture of L4 vertebra Mixed dyslipidemia Essential hypertension Hx of cancer of uterus Endometrial carcinoma Dyslipidemia Generalized anxiety disorder Surgical History History of lumpectomy of right breast History of total abdominal hysterectomy and bilateral salpingo-oophorectomy Family History Father Myocardial infarction HTN (hypertension) CVD (cardiovascular disease) Mother HTN (hypertension) Brother No problems noted. Son Mental health disorder Substance use disorder Daughter No problems noted. Social History Household Members: Spouse Household Members Other:: Housing: House Alcohol intake: current Alcohol intake frequency: a few times a month Patient Tobacco Use Status: Former Tobacco user Tobacco use type: Cigarette Cigarette Packs Per Day: 1 Years Smoked: 30 years e-Cigarette/Vaping Use: Never Used Current occupational status: unemployed Cognitive needs: No Hearing needs: No Vision needs: Yes Physical Exam Vital Signs: Last Vital Signs Pulse 81 10/29/23 12:52 BP 150/90 H 06/10/24 12:52 BMI result Body Mass Index 36.7 Assessment & Plan Assessment & Plan (1) Osteoporosis of lumbar spine: Code(s): M81.0 - Age-related osteoporosis without current pathological fracture Category: Medical Plan: This is a 62-year-old white female with a history of osteoporosis and compression fracture of L4 and pelvic fracture in the setting of endometrial cancer with chemo and radiation therapy. Secondary workup revealed low serum calcium and low 24 hour urine for calcium. Metastases had ruled out. Received a dose of Reclast last year The plan is to repeat DEXA bone density of the hip and spine about 5 months. We will also repeat urine NTX. Dependent upon above make it dose of Reclast 1st observe Orders: Orders XR DEXA axial skeleton Today M81.0 - Age-related osteoporosis without current pathological fracture Collagen Crosslinks NTX Today M81.0 - Age-related osteoporosis without current pathological fracture Coding Level of Care Code Est Pt Level 3 (16795) Diagnoses Osteoporosis of lumbar spine M81.0
== END 2023-10-29 13:19 | disposition home or self-care (01) ==
PROVIDERS: PCP Internal Medicine; Visit Provider Internal Medicine Endocrinology, Diabetes & Metabolism
DX: M81.0 Age-related osteoporosis without current pathological fracture (principal)
CPT/HCPCS: 99213

== ENCOUNTER → 2023-10-29 12:43 | Outpatient (BNVA) | payer OTHER, SELFPAY | PROVIDERS: PCP Internal Medicine; Visit Provider Internal Medicine Endocrinology, Diabetes & Metabolism | DX: M81.0 Age-related osteoporosis without current pathological fracture (principal) | CPT/HCPCS: 99212 ==

== ENCOUNTER 2024-02-05 13:18 | Outpatient (AMB) | payer OTHER, SELFPAY ==
--- NOTE | 2024-02-05 13:47 | MHC.PC.OV ---
Vital Signs 02/05/24 13:48 Height 5 ft 1 in Weight 199 lb BMI 37.6 BP 110/80 Blood Pressure Location Lt brachial Position Sitting Pulse 60 Pulse Source Pulse Oximeter Pulse Oximetry (%) 96 Intake Visit Reasons: Annual PE Intake Note: Pt is here today for her PE: Last mammogram 03/16/23 Allergies No Known Allergies [No Known Allergies*] Allergy (Verified 02/06/24 00:20) Medication List - Last Reconciled 02/06/24 by Amy Schultz MD amlodipine 5 mg PO DAILY aspirin (Adult Low Dose Aspirin) 81 mg PO DAILY cholecalciferol (vitamin D3) 50 mcg PO DAILY cyanocobalamin (vitamin B-12) 3,000 mcg PO DAILY famotidine 40 mg PO DAILY [full right leg compression wrap fax to [phone] NS] paroxetine HCl 30 mg PO QAM rosuvastatin 5 mg PO Q2D 90 days Tobacco use date assessed: 02/05/24 Dental Screening Dental Screen Date: 02/05/24 Did you have a dental visit in the last 12 months?: No Did you have a dental problem in the last 6 months where you did not have access to dental care?: No Was dental information given to patient?: Patient has dentist HPI Annual PE HPI Details 64 year-old lady with history of endometrial carcinoma with lymphedema, osteoporosis of lumbar spine, history of fracture of pubic ramus and compression fracture of L4 vertebra, has mixed dyslipidemia, hypertension and generalized anxiety disorder, here today for her physical exam. She has been feeling well, compliant with medication , but admits to being noncompliant with her diet this summer. She is up-to-date with her screening mammogram, due again this February. No longer gets Pap smears due to surgical menopause. She is also due for a screening colonoscopy. [facility] Medical History (Updated 02/06/24 @ 00:38 by Amy Schultz MD) Hypomagnesemia Colon cancer screening Lymphedema Osteoporosis of lumbar spine Hx of radiation therapy Osteopenia Annual visit for general adult medical examination with abnormal findings (~02/06/24) Fracture of pubic ramus Compression fracture of L4 vertebra Mixed dyslipidemia Essential hypertension Hx of cancer of uterus Endometrial carcinoma Generalized anxiety disorder Surgical History History of lumpectomy of right breast History of total abdominal hysterectomy and bilateral salpingo-oophorectomy Family History Father Myocardial infarction HTN (hypertension) CVD (cardiovascular disease) Mother HTN (hypertension) Brother No problems noted. Son Mental health disorder Substance use disorder Daughter No problems noted. Social History Household Members: Spouse Household Members Other:: Housing: House Alcohol intake: current Alcohol intake frequency: a few times a month Patient Tobacco Use Status: Former Tobacco user Tobacco use type: Cigarette Cigarette Packs Per Day: 1 Years Smoked: 30 years e-Cigarette/Vaping Use: Never Used Current occupational status: unemployed Cognitive needs: No Hearing needs: No Vision needs: Yes Questionnaire PHQ-9 Over the last 2 weeks, how often have you been bothered by any of the following problems? 1. Little interest or pleasure in doing things: not at all 2. Feeling down, depressed, or hopeless: not at all 3. Trouble falling or staying asleep, or sleeping too much: not at all 4. Feeling tired or having little energy: not at all 5. Poor appetite or overeating: not at all 6. Feeling bad about yourself - or that you are a failure or have let yourself or your family down: not at all 7. Trouble concentrating on things, such as reading the newspaper or watching television: not at all 8. Moving or speaking so slowly that other people could have noticed. Or the opposite - being so fidgety or restless that you have been moving around a lot more than usual: not at all 9. Thoughts that you would be better off or of hurting yourself in some way: not at all Total score: 0 Depression Screening Interpretation: Negative Depression Screening Done: Yes 00141 - PHQ-9 Billing: Yes Source: Developed by Drs. Maxi Liu, Linh Davis, Gumaro Huston and colleagues, with an educational evangelist from [employer]. Thrive Questionnaire Date Thrive assessed: 02/05/24 I am a: Patient What is your living situation today?: I have a steady place to live Within the past 12 months, did the food you bought not last and you didn't have the money to get more?: Never true Within the past 12 months, did you worry whether your food would run out before you got money to buy more?: Never true Do you have trouble paying for medicines?: No Do you have trouble getting transportation to medical appointments?: No Do you have trouble paying your heating and electricity bill?: No Do you have trouble taking care of your child, family member or friend?: No Do you have trouble with day-to-day activities such as bathing, preparing meals, shopping, managing finances, etc.?: No Are you interested in more education?: No Please select the resources that you would like help with: None Currently or been in a relationship where the following occur: No concerns reported THRIVE Score: 0 AUDIT C Alcohol Use Questionnaire (AUDIT-C) 1. How often do you have a drink containing alcohol?: Monthly or less 2. How many drinks containing alcohol do you have on a typical day when you are drinking?: 1 or 2 3. How often do you have six or more drinks on one occasion?: Never Total Score: 1 YANY-7 AMB Questionnaire YANY-7 Date YANY - 7 assessed: 02/05/24 Feeling nervous, anxious, or on edge: 0 = Not at all Not being able to stop or control worryin = Not at all Worrying too much about different things: 0 = Not at all Trouble relaxin = Not at all Being so restless that it is hard to sit still: 0 = Not at all Becoming easily annoyed or irritable: 0 = Not at all Feeling afraid as if something awful might happen: 0 = Not at all Total YANY-7 score (0-4 normal; 5-9 mild; 10-14 moderate; 15-21 severe): 0 Source: Developed by Drs. Maxi Liu, Linh Davis, Gumaro Huston and colleagues, with an educational evangelist from [employer]. Review of Systems Const Denies fatigue, Denies fever(s), Denies headache(s) and Denies weakness Eyes Details: she sees Dr Collazo in [place] ENT Details: Gets dental prophylaxis every 6 months Reports Normal hearing present, Denies dizziness, Denies headache(s), Denies nasal congestion, Denies nasal discharge and Denies sore throat Card Denies chest pain, Reports leg edema (Diffuse mild swelling in right lower extremity), Denies lightheadedness, Denies palpitations and Denies dyspnea Resp Denies chest congestion, Denies cough, Denies dyspnea and Denies wheezing GI Denies abdominal pain, Denies change in bowel habits and Denies heartburn Details: Goes to OBGYN in [facility] every 6 months and sees Oncology every 3 month Reports urinary incontinence, Denies vaginal discharge and Denies vaginal pruritus Musc Denies muscle weakness, Denies numbness and Denies stiffness Skin/Breast Denies breast swelling, Denies breast pain, Denies breast mass, Denies dry skin, Denies lesions and Denies rash Neuro Reports Normal hearing present, Denies behavioral changes, Denies dizziness, Denies headache(s), Denies numbness, Denies Sensory deficit (Neuro) and Denies weakness Psych Denies anxiety (Controlled on present treatment), Denies behavioral changes, Denies depression, Denies difficulty concentrating and Denies anhedonia Endo Denies fatigue, Denies polydipsia, Denies polyuria and Denies palpitations [place]/Lymph Denies easy bruising Aller/Immun Denies seasonal rhinorrhea and Denies wheezing Physical exam (Primary Care) Vital Signs: Last Vital Signs Pulse 60 02/05/24 13:48 BP 110/80 02/05/24 13:48 Pulse Ox 96 02/05/24 13:48 BMI result Body Mass Index 37.6 Tobacco/Smoking Status: Tobacco use Status Tobacco use date assessed 02/05/24 02/05/24 13:51 Patient Tobacco Use Status Former Tobacco user 02/05/24 13:51 Tobacco use type Cigarette 02/05/24 13:51 e-Cigarette/Vaping Use Never Used 02/05/24 13:51 PHQ-9: PHQ-9 Score PHQ-9: Total score 0 02/05/24 13:51 Depression Screening Interpretation: Negative Thrive Assessment: Date of Thrive Assessment Date Thrive assessed 02/05/24 02/05/24 13:51 Currently or been in a relationship where the following occur: No concerns reported Const Other: Alert, oriented x3, pleasant, no acute cardiorespiratory distress, ambulatory normal gait Nutritional Appearance: obese Orientation/consciousness: patient oriented x3 HENMT Head: Yes normocephalic Ears: hearing grossly normal bilaterally, external ears normal, TM's normal bilaterally and EAC's normal General nose exam: Normal external nose present and No nasal discharge present Mouth: Normal oral and palatal mucosa present, oropharynx normal and moist mucous membranes Eyes General: appearance normal, both eyes and all related structures Neck Neck: Yes full ROM, Yes no lymphadenopathy, Yes supple and No tender Thyroid: Thyroid normal Chest Chest palpation & inspection: normal inspection of the chest and normal palpation of entire chest wall Breast/axilla inspection: normal inspection of the breasts Breast/axilla palpation: normal palpation of the breasts and normal palpation of the axillae Resp Auscultation: clear to auscultation bilaterally Cardio Other: S1-S2 present regular rate and rhythm GI Other: Well-healed surgical scar noted on infraumbilical area Palpation (GI): Soft to palpation, nontender, no guarding, no hernias and no masses General: Yes no CVA tenderness Back/Spine/Pelvis Back: no CVA tenderness and No back tenderness Skin General skin exam: no rashes or lesions noted Neuro General: patient oriented x3, moves all extremities and normal sensation to monofilament Cranial nerves: Yes Normal hearing present Sensory Exam: No Sensory deficit (Neuro) Extrem Other: Wears compression stockings for her lymphedema on right lower extremity General: Yes no joint enlargement, Yes no pedal edema and Yes no calf tenderness Psych Appearance: grossly normal and well kempt Mental Status: mental status grossly normal Speech and movement: Normal speech and movement present Affect: normal affect Attitude: cooperative Thought process: Normal thought process present Assessment and Plan Assessment & Plan (1) Annual visit for general adult medical examination with abnormal findings: Onset Date: ~02/06/24 Code(s): Z00.01 - Encounter for general adult medical examination with abnormal findings Plan: Will check appropriate labs. Recommended dental visit every 6 months and regular eye exams, at least every 2 years. Take adequate calcium in diet and vitamin-D 3 at 2000 IU per cap once a day, in addition to weight-bearing exercises to help maintain good muscle tone and weight control. Instructed to do self-breast exam, and recommended to get yearly mammogram, starting at age 40. Immunization information provided: Yearly flu vaccine, shingles vaccine starting at age 50, at age 65 to start getting Prevnar 13 followed 1 year later by Pneumovax 23. Colonoscopy (2) Generalized anxiety disorder: Code(s): F41.1 - Generalized anxiety disorder Plan: Controlled on paroxetine 30 mg taken once a day in a.m. (3) Essential hypertension: Code(s): I10 - Essential (primary) hypertension Plan: Blood pressure at goal of less than 130/80. Continue with current medication. Reinforced importance of following a low sodium diet, getting regular exercise, and lowering stress levels. Reminded to get her flu shot and COVID booster. Reminded to get her yearly mammogram scheduled, sees a OBGYN at [facility] for her routine Pap pelvic exam which is currently up-to-date. Up-to-date with her screening colonoscopy (4) Mixed dyslipidemia: Code(s): E78.2 - Mixed hyperlipidemia Plan: Fasting lipid panel ordered, continue on rosuvastatin 5 mg taken 1 tablet every other day in addition to adherence to a low-cholesterol diet and getting regular exercise (5) Osteoporosis of lumbar spine: Code(s): M81.0 - Age-related osteoporosis without current pathological fracture Plan: Followed by endocrine clinic continue with vitamin-D 3 2000 units daily, encouraged to do regular weight-bearing exercise, and take adequate calcium from dietary sources. (6) Hypomagnesemia: Code(s): E83.42 - Hypomagnesemia Plan: Will check magnesium level (7) Lymphedema: Code(s): I89.0 - Lymphedema, not elsewhere classified Plan: Continue wearing compression stockings on affected extremity Orders: Orders Complete Blood Count Auto Diff 02/05/24 E78.2 - Mixed hyperlipidemia, E78.5 - Hyperlipidemia, unspecified, E83.42 - Hypomagnesemia, F41.1 - Generalized anxiety disorder, I10 - Essential (primary) hypertension, I89.0 - Lymphedema, not elsewhere classified, M81.0 - Age-related osteoporosis without current pathological fracture, Z00.01 - Encounter for general adult medical examination with abnormal findings Lipid Panel 02/05/24 E78.2 - Mixed hyperlipidemia, E78.5 - Hyperlipidemia, unspecified, E83.42 - Hypomagnesemia, F41.1 - Generalized anxiety disorder, I10 - Essential (primary) hypertension, I89.0 - Lymphedema, not elsewhere classified, M81.0 - Age-related osteoporosis without current pathological fracture, Z00.01 - Encounter for general adult medical examination with abnormal findings Vitamin D 25-OH Total 02/05/24 E78.2 - Mixed hyperlipidemia, E78.5 - Hyperlipidemia, unspecified, E83.42 - Hypomagnesemia, F41.1 - Generalized anxiety disorder, I10 - Essential (primary) hypertension, I89.0 - Lymphedema, not elsewhere classified, M81.0 - Age-related osteoporosis without current pathological fracture, Z00.01 - Encounter for general adult medical examination with abnormal findings Comprehensive [place]. Panel Fast 02/05/24 E78.2 - Mixed hyperlipidemia, E78.5 - Hyperlipidemia, unspecified, E83.42 - Hypomagnesemia, F41.1 - Generalized anxiety disorder, I10 - Essential (primary) hypertension, I89.0 - Lymphedema, not elsewhere classified, M81.0 - Age-related osteoporosis without current pathological fracture, Z00.01 - Encounter for general adult medical examination with abnormal findings Magnesium 02/05/24 E78.2 - Mixed hyperlipidemia, E78.5 - Hyperlipidemia, unspecified, E83.42 - Hypomagnesemia, F41.1 - Generalized anxiety disorder, I10 - Essential (primary) hypertension, I89.0 - Lymphedema, not elsewhere classified, M81.0 - Age-related osteoporosis without current pathological fracture, Z00.01 - Encounter for general adult medical examination with abnormal findings Coding Level of Care Code Est Pt Prev Care 40-64y([id number]) Diagnoses Annual visit for general adult medical examination with abnormal findings Z00.01 Generalized anxiety disorder F41.1 Essential hypertension I10 Mixed dyslipidemia E78.2 Osteoporosis of lumbar spine M81.0 Hypomagnesemia E83.42 Lymphedema I89.0
[2024-02-05 13:48] VITALS: BP 110/80; PULSE 60; O2SAT 96; BMI 37.6
== END 2024-02-05 15:47 | disposition home or self-care (01) ==
PROVIDERS: PCP Internal Medicine; Visit Provider Internal Medicine
DX: Z00.01 Encounter for general adult medical examination with abnormal findings (principal); F41.1 Generalized anxiety disorder; I10 Essential (primary) hypertension; E78.2 Mixed hyperlipidemia; M81.0 Age-related osteoporosis without current pathological fracture; E83.42 Hypomagnesemia; I89.0 Lymphedema, not elsewhere classified

== ENCOUNTER → 2024-02-05 13:18 | Outpatient (BNVA) | payer OTHER, SELFPAY | PROVIDERS: PCP Internal Medicine; Visit Provider Internal Medicine | DX: Z00.01 Encounter for general adult medical examination with abnormal findings (principal); F41.1 Generalized anxiety disorder; I10 Essential (primary) hypertension; E78.2 Mixed hyperlipidemia; M81.0 Age-related osteoporosis without current pathological fracture; E83.52 Hypercalcemia; I89.0 Lymphedema, not elsewhere classified | CPT/HCPCS: 99396 ==

== ENCOUNTER 2024-04-15 09:34 | Outpatient (REF) | payer OTHER, SELFPAY ==
[2024-04-15 13:11] LABS: MANUAL DIFF FLAG NO
[2024-04-15 13:16] LABS: Basophils Percent Auto 0.8 % (0-2); Eosinophils Absolute Auto 0.1 X10*3/uL (0.0-0.4); Eosinophils Percent Auto 2.9 % (0-4); Hematocrit 42.9 % (37.0-47.0); Hemoglobin 14.2 g/dl (12.0-16.0); Imm Gran Abs Auto 0.03 X10*3/uL (0.00-0.03); Imm Gran Pct Auto 0.6 % (0.0-0.4); Lymphocytes Absolute Auto 1.1 X10*3/uL (1.2-4.9); Lymphocytes Percent Auto 23.8 % (20-40); Mean Corpuscular HGB Conc 33.1 g/dl (31.0-35.0); Mean Corpuscular Hemoglobin 30.3 pg (27.0-33.0); Mean Corpuscular Volume 91.5 fL (80.0-98.0); Mean Platelet Volume 9.9 fL (9.4-12.3); Monocytes Absolute Auto 0.6 X10*3/uL (0.1-1.2); Monocytes Percent Auto 11.5 % (2-11); Neutrophils Absolute Auto 2.9 x10*3/uL (2.0-8.3); Neutrophils Percent Auto 60.4 % (45-73); Platelet Count 235 X10*3/uL (160-400); Red Blood Count 4.69 X10*6/uL (4.20-5.50); Red Cell Distribution Width 12.8 % (11.0-16.0); White Blood Count 4.8 X10*3/uL (4.8-10.8)
[2024-04-15 13:51] LABS: Alanine Aminotransferase 34 U/L (0-31); Alkaline Phosphatase 63 U/L (39-117); Anion Gap 13 (12-20); Aspartate Amino Transferase 30 U/L (5-31); Bilirubin Total 0.4 mg/dL (0.0-1.0); Blood Urea Nitrogen 15 mg/dL (9-16); Calcium 9.9 mg/dL (8.4-10.2); Carbon Dioxide 24 mmol/L (22-29); Chloride 104 mmol/L (96-108); Cholesterol 191 mg/dL (<200); Estimated Glomerular Filt Rate 49; Glucose Fasting 95 mg/dL (60-99); HDL Cholesterol 56 mg/dL (>40); LDL Cholesterol Calculated 89 mg/dL (<100); Magnesium 1.6 mg/dL (1.6-2.6); Potassium 4.3 mmol/L (3.3-5.1); Sodium 137 mmol/L (135-145); Total Protein 6.8 g/dL (6.5-8.0); Triglycerides 234 mg/dL (<150)
[2024-04-15 13:55] LABS: Vitamin D 25-OH Total 76.8 ng/mL (>30)
[2024-04-30 15:19] LABS: N-Telopeptide 22 (see note); NTXCreaRU 33 mg/dL (20-275)
== END 2024-04-15 09:35 | disposition home or self-care (01) ==
LOC: HO.HMGCLDS 09:34
PROVIDERS: PCP Internal Medicine; Referring Provider Internal Medicine Endocrinology, Diabetes & Metabolism; Visit Provider Internal Medicine
DX: Z00.01 Encounter for general adult medical examination with abnormal findings (principal); M81.0 Age-related osteoporosis without current pathological fracture; E83.42 Hypomagnesemia; I89.0 Lymphedema, not elsewhere classified; E78.2 Mixed hyperlipidemia; I10 Essential (primary) hypertension; E78.5 Hyperlipidemia, unspecified; F41.1 Generalized anxiety disorder
CPT/HCPCS: 36415; 80053; 80061; 82306; 82523; 83735; 85025

== ENCOUNTER 2024-04-22 13:51 | Outpatient (REF) | payer OTHER, SELFPAY ==
--- NOTE | ~2024-04-22 | MM_ITS ---
EXAMINATION: BONE DENSITOMETRY CLINICAL INDICATION: Age-related osteoporosis without current pathological fracture. COMPARISON: Baseline BD dated 04/19/2022. TECHNIQUE: Using a ROVOP DXA System (software version: 13.1) manufactured by [employer], dual-energy x-ray absorptiometry was performed of the lumbar spine and left hip. The images are of good technical quality. Summary results are attached. FINDINGS: LEFT FEMUR, NECK: Current: BMD 0.662 g/cm2, Z-score -1.8, T-score -2.7, osteoporosis. Baseline: BMD 0.629 g/cm2. LEFT FEMUR, TOTAL: Current: BMD 0.830 g/cm2, Z-score -0.8, T-score -1.4, osteopenia, 5.5% increase from baseline (<5% change is not significant). Baseline: BMD 0.787 g/cm2. AP SPINE L1-L3 (excluding L4): The data of L1-L4 has been changed to exclude the L4 vertebral body, because at this level may cause overestimation of lumbar spine density. Current: BMD 0.946 g/cm2, Z-score -1.2, T-score -1.9, osteopenia, 1.0% increase from baseline (<5% change is not significant). Baseline: BMD 0.937 g/cm2. IDENTIFIED RISK FACTORS: Menopause, osteoporosis, hysterectomy, history of fracture (adult), bilateral oophorectomy. HISTORY OF FRACTURE: Spine, pelvis. MEDICATIONS: Calcium, vitamin D, bisphosphonate. MM/XR DEXA axial skeleton IMPRESSION: 1. DIAGNOSIS: Severe osteoporosis based on the lowest T-score value of -2.7 in the femur neck and history of fracture of spine and pelvis applying World Health Organization criteria. 2. 10-YEAR FRACTURE RISK PREDICTION, FRAX: According to the guidelines, FRAX calculation should only be performed on patients in the osteopenia bone density category. Therefore, FRAX was not performed on this patient. 3. Treatment Recommendations: NOF guidelines recommend consideration for treatment in postmenopausal women and men age 50 and older presenting with the following: -A hip or vertebral (clinical or morphometric) fracture. -T-score less than or equal to -2.5 at the femoral neck or spine after appropriate evaluation to exclude secondary causes. -Low bone mass at the hip or spine and a 10-year fracture probability by FRAX of greater than or equal to 3% for hip fracture or greater than or equal to 20% for major osteoporotic fracture based on the [place] adapted WHO algorithm. 4. Other Recommendations: All treatment decisions require clinical judgment and consideration of individual patient factors, including patient preferences, comorbidities, previous drug use, risk factors not captured in the FRAX model (e.g. frailty, falls, vitamin D deficiency, increased bone turnover, interval significant decline in bone density) and possible under or overestimation of fracture risk by FRAX. Additional medical evaluation for secondary cause of low bone mineral density may be appropriate. FUTURE SCAN RECOMMENDATION: People with diagnosed cases of osteoporosis or at high risk for fracture should have regular bone mineral density tests. For patients eligible for Medicare, routine testing is allowed once every 2 years. The testing frequency can be increased to one year for patients who have rapidly progressing disease, those who are receiving or discontinuing medical therapy to restore bone mass, or have additional risk factors. Electronically signed by: Salma Trevino MD 04/25/2024 12:51 PM [facility]
== END 2024-04-22 13:52 | disposition home or self-care (01) ==
LOC: HO.MAMMO 13:51
PROVIDERS: PCP Internal Medicine; Visit Provider Internal Medicine Endocrinology, Diabetes & Metabolism
DX: M81.0 Age-related osteoporosis without current pathological fracture (principal)
CPT/HCPCS: 77080

== ENCOUNTER 2024-04-29 12:39 | Outpatient (AMB) | payer OTHER, SELFPAY ==
--- NOTE | 2024-04-29 12:54 | MHC.OFFVIS ---
Vital Signs 04/29/24 12:56 Height 5 ft 1.05 in Weight 203 lb 0.732 oz BMI 38.3 BP 138/90 H Blood Pressure Location Lt brachial Position Sitting Pulse 90 Pulse Source Pulse Oximeter Intake Visit Reasons: f/u osteoporosis Intake Note: Patient present today for Osteoporosis follow up. 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 RT in 0526-6550 /chemo 2019 is seen in consultation at the request of PCP for Osteoporosis. First diagnosed in recently . Not Received treatment in the past History of pathologic fracture wedge compression fx of L4 Fx of R pubic symphis . Underwent biopsy of L4 with no metastasis detected Has several servings of dietary calcium per day in the form of milk or cheese . Not Takes Calcium supplement Takes 2000 IU of Vitamin D daily. Takes PPI Prilosec , anticoagulant, -antiepileptic or -glucocorticoid medication. Does weight bearing exercise 2 days per week in the form of swimming . Fracture history: see above Height loss: [] NUTRITIONISTS history: menopause 52 nl menses before underwent hysterectomy in 2019 Denies history of Kidney stones: Denies family history of Osteoporosis or hip fracture. UTD on dental cleanings and sees dentist every 6 months. No planned upcoming dental work or extractions. Dexa 04/19/22 FINDINGS: AP SPINE L1-L2 (excluding L3 and L4): The data of L1-L4 has been changed to exclude the L3 and L4 vertebral bodies, because degenerative changes at these levels as well as L4 compression deformity which may cause overestimation of lumbar spine density. BMD 0.629 g/cm2, Z-score -2.1, T-score -2.9, osteoporosis. LEFT FEMUR, NECK: BMD 0.787 g/cm2, Z-score -1.3, T-score -1.8, osteopenia. LEFT FEMUR, TOTAL: BMD 0.872 g/cm2, Z-score -1.9, T-score -2.4, osteopenia. IDENTIFIED RISK FACTORS: Menopause, hysterectomy, history of fracture (adult), bilateral oophorectomy. HISTORY OF FRACTURE: Pelvis, spine. MEDICATIONS: Vitamin D. MM/XR DEXA axial skeleton IMPRESSION: 1. DIAGNOSIS: Osteoporosis based on the lowest T-score value of -2.9 in the lumbar spine applying World Health Organization criteria.? DXA dated []: Labs: Secondary workup was negative except for low serum calcium with normal 25 hydroxy vitamin-D and low 24 hour urine for calcium. Repeat calcium on calcium supplementation was normal. Received a dose of Reclast last year No fx since last visit . Received a dose of Reclast last year. DEXA bone density has been stable [facility] Medical History (Updated 02/06/24 @ 00:38 by Aym Schultz MD) Hypomagnesemia Colon cancer screening Lymphedema Osteoporosis of lumbar spine Hx of radiation therapy Osteopenia Annual visit for general adult medical examination with abnormal findings (~02/06/24) Fracture of pubic ramus Compression fracture of L4 vertebra Mixed dyslipidemia Essential hypertension Hx of cancer of uterus Endometrial carcinoma Generalized anxiety disorder Surgical History History of lumpectomy of right breast History of total abdominal hysterectomy and bilateral salpingo-oophorectomy Family History Father Myocardial infarction HTN (hypertension) CVD (cardiovascular disease) Mother HTN (hypertension) Brother No problems noted. Son Mental health disorder Substance use disorder Daughter No problems noted. Social History Household Members: Spouse Household Members Other:: Housing: House Alcohol intake: current Alcohol intake frequency: a few times a month Patient Tobacco Use Status: Former Tobacco user Tobacco use type: Cigarette Cigarette Packs Per Day: 1 Years Smoked: 30 years e-Cigarette/Vaping Use: Never Used Current occupational status: unemployed Cognitive needs: No Hearing needs: No Vision needs: Yes Physical Exam Vital Signs: Last Vital Signs Pulse 90 04/29/24 12:56 BP 138/90 H 04/29/24 12:56 BMI result Body Mass Index 38.3 Assessment & Plan Assessment & Plan (1) Osteoporosis of lumbar spine: Code(s): M81.0 - Age-related osteoporosis without current pathological fracture Category: Medical Plan: This is a 62-year-old white female with a history of osteoporosis and compression fracture of L4 and pelvic fracture in the setting of endometrial cancer with chemo and radiation therapy. Secondary workup revealed low serum calcium and low 24 hour urine for calcium. Metastases had ruled out. Received a dose of Reclast last year The plan is to check urine NTX when available. We discussed different options of therapy including another dose of Reclast 1st or alendronate considering fracture history in the spine and continued presence of osteoporosis on DEXA. We decided to transition to oral alendronate which will start next couple of months. I went over administration of oral alendronate with the patient. We will recheck urine NTX in about 6 months' time prior to follow-up visit. I anticipate given the oral alendronate for another 1-2 years time and then proceeding to a drug holiday. Orders: Orders Collagen Crosslinks NTX 6 Months M81.0 - Age-related osteoporosis without current pathological fracture Medications: New alendronate 70 mg PO QWEEK 5 tabs 5RF Coding Level of Care Code Est Pt Level 3 (73201) Diagnoses Osteoporosis of lumbar spine M81.0
[2024-04-29 12:56] VITALS: BP 138/90; PULSE 90; BMI 38.3
== END 2024-04-29 13:20 | disposition home or self-care (01) ==
PROVIDERS: PCP Internal Medicine; Visit Provider Internal Medicine Endocrinology, Diabetes & Metabolism
DX: M81.0 Age-related osteoporosis without current pathological fracture (principal)
CPT/HCPCS: 99213

== ENCOUNTER → 2024-04-29 12:39 | Outpatient (BNVA) | payer OTHER, SELFPAY | PROVIDERS: PCP Internal Medicine; Visit Provider Internal Medicine Endocrinology, Diabetes & Metabolism | DX: M81.0 Age-related osteoporosis without current pathological fracture (principal) | CPT/HCPCS: 99212 ==

== ENCOUNTER 2024-06-06 10:48 | Outpatient (REF) | payer OTHER, SELFPAY | END 2024-06-06 10:49 | disposition home or self-care (01) | LOC: HO.MAMMO 10:48 | PROVIDERS: PCP Internal Medicine; Visit Provider Internal Medicine | DX: Z12.31 Encounter for screening mammogram for malignant neoplasm of breast (principal) | CPT/HCPCS: 77063; 77067 ==

== ENCOUNTER → 2024-06-13 10:57 | Outpatient (BNVA) | payer OTHER, SELFPAY | PROVIDERS: PCP Internal Medicine; Visit Provider Nurse Practitioner Family | DX: Z12.11 Encounter for screening for malignant neoplasm of colon (principal) | CPT/HCPCS: 99202 ==

== ENCOUNTER 2024-10-23 09:58 | Outpatient (REF) | payer OTHER, SELFPAY ==
[2024-10-30 08:48] LABS: N-Telopeptide 26 (see note); NTXCreaRU 114 mg/dL (20-275)
== END 2024-10-23 09:59 | disposition home or self-care (01) ==
LOC: HO.HMGCLDS 09:58
PROVIDERS: PCP Internal Medicine; Visit Provider Internal Medicine Endocrinology, Diabetes & Metabolism
DX: M81.0 Age-related osteoporosis without current pathological fracture (principal)
CPT/HCPCS: 82523

== ENCOUNTER 2024-10-28 12:45 | Outpatient (AMB) | payer OTHER, SELFPAY ==
[2024-10-28 12:54] VITALS: BP 142/92; PULSE 74; O2SAT 98; BMI 38.2
--- NOTE | 2024-10-28 12:54 | MHC.OFFVIS ---
Vital Signs 10/28/24 12:54 Height 5 ft 1.14 in Weight 203 lb 0.732 oz BMI 38.2 BP 142/92 H Blood Pressure Location Rt brachial Position Sitting Pulse 74 Pulse Source Pulse Oximeter Pulse Oximetry (%) 98 Oxygen Delivery Method Room Air Intake Visit Reasons: Osteoporosis Intake Note: Patient present today for Osteoporosis follow up. 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 Accompanied by: Mother Allergies No Known Allergies [No Known Allergies*] Allergy (Verified 10/28/24 12:55) Medication List - Last Reconciled 10/28/24 by Maxi Manley MD alendronate 70 mg PO QWEEK amlodipine 5 mg PO DAILY aspirin (Adult Low Dose Aspirin) 81 mg PO DAILY bisacodyl (Dulcolax (bisacodyl)) 20 mg (4 x 5 mg) PO ONCE 1 day cholecalciferol (vitamin D3) 50 mcg PO DAILY cyanocobalamin (vitamin B-12) 3,000 mcg PO DAILY famotidine 40 mg PO DAILY [full right leg compression wrap fax to [phone] NS] paroxetine HCl 30 mg PO QAM polyethylene glycol 3350 (Miralax) 238 grams PO ONCE rosuvastatin 5 mg PO Q2D 90 days HPI Comments Details: 64 YO Female with PMHx endometrial Ca in past with chemo and RT treated at [facility] . RT in [id number] /chemo 2019 is seen in consultation at the request of PCP for Osteoporosis. First diagnosed in recently . Not Received treatment in the past History of pathologic fracture wedge compression fx of L4 Fx of R pubic symphis . Underwent biopsy of L4 with no metastasis detected Has several servings of dietary calcium per day in the form of milk or cheese . Not Takes Calcium supplement Takes 2000 IU of Vitamin D daily. Takes PPI Prilosec , anticoagulant, -antiepileptic or -glucocorticoid medication. Does weight bearing exercise 2 days per week in the form of swimming . 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 UTD on dental cleanings and sees dentist every 6 months. No planned upcoming dental work or extractions. Dexa 04/19/22 FINDINGS: AP SPINE L1-L2 (excluding L3 and L4): The data of L1-L4 has been changed to exclude the L3 and L4 vertebral bodies, because degenerative changes at these levels as well as L4 compression deformity which may cause overestimation of lumbar spine density. BMD 0.629 g/cm2, Z-score -2.1, T-score -2.9, osteoporosis. LEFT FEMUR, NECK: BMD 0.787 g/cm2, Z-score -1.3, T-score -1.8, osteopenia. LEFT FEMUR, TOTAL: BMD 0.872 g/cm2, Z-score -1.9, T-score -2.4, osteopenia. IDENTIFIED RISK FACTORS: Menopause, hysterectomy, history of fracture (adult), bilateral oophorectomy. HISTORY OF FRACTURE: Pelvis, spine. MEDICATIONS: Vitamin D. MM/XR DEXA axial skeleton IMPRESSION: 1. DIAGNOSIS: Osteoporosis based on the lowest T-score value of -2.9 in the lumbar spine applying World Health Organization criteria.? DXA dated []: Labs: Secondary workup was negative except for low serum calcium with normal 25 hydroxy vitamin-D and low 24 hour urine for calcium. Repeat calcium on calcium supplementation was normal. Received a dose of Reclast last year No fx since last visit . Received a dose of Reclast last year. DEXA bone density has been stable. Currently on alendronate since 04/2024. Tolerating alendronate nicely The patient is a 64-year-old female presenting for follow-up on osteoporosis management. She has been previously treated with Reclast and is currently on a regimen of Alendronate. She reports heartburn associated with Alendronate, which is tolerable and managed by adherence to administration instructions, including taking the medication with water in the morning and remaining upright thereafter. She is compliant with calcium and vitamin D supplementation. There is a history of a compression fracture, yet no new fractures since the last visit. The plan includes continued monitoring, with an assessment scheduled for April. The patient has submitted urine for osteoporosis-related testing, with results pending due to extended processing times. Previous urine NTX tests were satisfactory. [facility] Medical History Hypomagnesemia Colon cancer screening Lymphedema Osteoporosis of lumbar spine Hx of radiation therapy Osteopenia Annual visit for general adult medical examination with abnormal findings (~02/06/24) Fracture of pubic ramus Compression fracture of L4 vertebra Mixed dyslipidemia Essential hypertension Hx of cancer of uterus Endometrial carcinoma Generalized anxiety disorder Surgical History History of lumpectomy of right breast History of total abdominal hysterectomy and bilateral salpingo-oophorectomy Family History Father Myocardial infarction HTN (hypertension) CVD (cardiovascular disease) Mother HTN (hypertension) Brother No problems noted. Son Mental health disorder Substance use disorder Daughter No problems noted. Social History Household Members: Spouse Household Members Other:: Housing: House Alcohol intake: current Alcohol intake frequency: a few times a month Patient Tobacco Use Status: Former Tobacco user Tobacco use type: Cigarette Cigarette Packs Per Day: 1 Years Smoked: 30 years e-Cigarette/Vaping Use: Never Used Current occupational status: unemployed Cognitive needs: No Hearing needs: No Vision needs: Yes Physical Exam Vital Signs: BMI result Body Mass Index 38.2 Assessment & Plan Assessment & Plan (1) Osteoporosis of lumbar spine: Code(s): M81.0 - Age-related osteoporosis without current pathological fracture Category: Medical Plan: This is a 62-year-old white female with a history of osteoporosis and compression fracture of L4 and pelvic fracture in the setting of endometrial cancer with chemo and radiation therapy. Currently on alendronate since 04/2024 The plan is to check urine NTX when available. Assuming urine NTX is suppressed, would continue the alendronate for another year or year and a half. 1. Osteoporosis The patient remains on Alendronate therapy, benefiting from its non-invasive, cost-effective nature. Calcium and vitamin D supplementation continue, supporting the effectiveness of the osteoporosis treatment regime. Urine samples will continue to monitor progress. I discussed the continuation of Alendronate therapy for osteoporosis management, emphasizing its benefits in fracture prevention despite occasional heartburn. We reviewed the importance of adequate calcium and vitamin D supplementation. The patient will monitor for urine changes, and adherence to medication instructions was reinforced to mitigate heartburn. Future reassessment is planned in six months. I encouraged open communication regarding any new symptoms or concerns. - Continue taking Alendronate with a glass of water in the morning, and remain upright for at least 30 minutes afterward. - Maintain current calcium and vitamin D intake as discussed. - Provide a urine sample at least two weeks before the next scheduled visit. - Report any new symptoms or significant changes in health. The patient had an opportunity to ask questions regarding treatment plan. The patient expressed understanding and agreement with the above treatment plan. Patient was informed and verbally consented to the use of an ambient scribe for clinic note documentation during this visit. Orders: Orders Collagen Crosslinks NTX 6 Months M81.0 - Age-related osteoporosis without current pathological fracture Coding Level of Care Code Est Pt Level 3 (14494) Diagnoses Osteoporosis of lumbar spine M81.0
== END 2024-10-28 13:12 | disposition home or self-care (01) ==
LOC: HO.ENCR 12:46
PROVIDERS: PCP Internal Medicine; Visit Provider Internal Medicine Endocrinology, Diabetes & Metabolism
DX: M81.0 Age-related osteoporosis without current pathological fracture (principal)
CPT/HCPCS: 99213

== ENCOUNTER → 2024-10-28 12:45 | Outpatient (BNVA) | payer OTHER, SELFPAY | PROVIDERS: PCP Internal Medicine; Visit Provider Internal Medicine Endocrinology, Diabetes & Metabolism | DX: M81.0 Age-related osteoporosis without current pathological fracture (principal) | CPT/HCPCS: 99212 ==

== ENCOUNTER 2025-02-23 09:36 | Outpatient (AMB) | payer MEDICARE, SELFPAY ==
--- NOTE | 2025-02-23 10:00 | A.OFFPC_ITS ---
Vital Signs 02/23/25 10:01 Height 5 ft 1 in Weight 206 lb BMI 38.9 BP 136/82 Blood Pressure Location Rt brachial Position Sitting Respiration 16 Pulse 81 Pulse Source Pulse Oximeter Temp 98.2 F Temp Source Oral Pulse Oximetry (%) 97 Oxygen Delivery Method Room Air Intake Visit Reasons: PE Intake Note: Pt is here today for her PE: last mammgogram 05/1724, bone density scan 04/22/24: Never had a colonoscopy Allergies No Known Allergies (No Known Allergies*) Allergy (Verified 02/23/25 10:25) Medication List - Last Reconciled 02/23/25 by Amy Schultz MD alendronate 70 mg PO QWEEK amlodipine 5 mg PO DAILY aspirin (Adult Low Dose Aspirin) 81 mg PO DAILY cholecalciferol (vitamin D3) 50 mcg PO DAILY cyanocobalamin (vitamin B-12) 3,000 mcg PO DAILY famotidine 40 mg PO DAILY [full right leg compression wrap fax to [phone] NS] paroxetine HCl 30 mg PO QAM rosuvastatin 5 mg PO Q2D 90 days Tobacco use date assessed: 02/23/25 Last assessed Fall Risk: 02/23/25 Dental Screening Dental Screen Date: 02/23/25 Did you have a dental visit in the last 12 months?: Yes Did you have a dental problem in the last 6 months where you did not have access to dental care?: No Was dental information given to patient?: Patient has dentist HPI PE HPI Details 68 year old? female with past medical hi story of lymphedema, osteoporosis, osteopenia, hyperlipidemia, hypertension, anxiety, endometrial carcinomas/p ANGELINE-BSO, is here today for her physical exam. Up-to-date with her screening mammogram done earlier this year with benign findings Last bone density scan was done which showed osteoporosis in left femoral neck, and osteopenia in lumbar spine and left femur, with some improvement in bone density noted. She currently sees Dr. Manley who has her on alendronate 70 mg once a week. She has been referred to [facility] for her initial colonoscopy screening, last seen May 2024 and is awaiting an appointment for her colonoscopy procedure She has a history of endometrial cancer, which required radiation therapy and surgical removal of the uterus, ovaries, fallopian tubes, and cervix. She is currently in remission and has been for nearly five years. Hyperlipidemia was noted with high triglycerides last year, although LDL cholesterol was well-controlled at 89 mg/dL. The patient is on rosuvastatin, taken every other day, and reports adherence to this regimen, as well as diet The patient reports lymphedema in the lower extremities, attributed to prior cancer treatment, and manages it with compression stockings and massage. She is exploring options for lymphatic massage therapy, although insurance coverage is uncertain. [facility] Medical History (Updated 02/23/25 @ 10:49 by Amy Schultz MD) History of endometrial cancer Hypomagnesemia Colon cancer screening Lymphedema Osteoporosis of lumbar spine Hx of radiation therapy Osteopenia Annual visit for general adult medical examination with abnormal findings (~02/06/24) Fracture of pubic ramus Compression fracture of L4 vertebra Mixed dyslipidemia Essential hypertension Hx of cancer of uterus Endometrial carcinoma Generalized anxiety disorder Surgical History History of lumpectomy of right breast History of total abdominal hysterectomy and bilateral salpingo-oophorectomy Family History Father Myocardial infarction HTN (hypertension) CVD (cardiovascular disease) Mother HTN (hypertension) Brother No problems noted. Son Mental health disorder Substance use disorder Daughter No problems noted. Social History Household Members: Spouse Household Members Other:: Housing: House Alcohol intake: current Alcohol intake frequency: a few times a month Patient Tobacco Use Status: Former Tobacco user Tobacco use type: Cigarette Cigarette Packs Per Day: 1 Years Smoked: 30 years e-Cigarette/Vaping Use: Never Used Current occupational status: unemployed Cognitive needs: No Hearing needs: No Vision needs: Yes Female Reproductive History Menstrual Menopause type: surgical Questionnaire PHQ-9 Over the last 2 weeks, how often have you been bothered by any of the following problems? 1. Little interest or pleasure in doing things: not at all 2. Feeling down, depressed, or hopeless: not at all 3. Trouble falling or staying asleep, or sleeping too much: not at all 4. Feeling tired or having little energy: not at all 5. Poor appetite or overeating: not at all 6. Feeling bad about yourself - or that you are a failure or have let yourself or your family down: not at all 7. Trouble concentrating on things, such as reading the newspaper or watching television: not at all 8. Moving or speaking so slowly that other people could have noticed. Or the opposite - being so fidgety or restless that you have been moving around a lot more than usual: not at all 9. Thoughts that you would be better off or of hurting yourself in some way: not at all Total score: 0 Depression Screening Interpretation: Negative Depression Screening Done: Yes 74738 - PHQ-9 Billing: Yes Source: Developed by Drs. Maxi Liu, Linh Davis, Gumaro Huston and colleagues, with an educational evangelist from [employer]. Thrive Questionnaire Date Thrive assessed: 02/23/25 I am a: Patient What is your living situation today?: I have a steady place to live Within the past 12 months, did the food you bought not last and you didn't have the money to get more?: Never true Within the past 12 months, did you worry whether your food would run out before you got money to buy more?: Never true Do you have trouble paying for medicines?: No Do you have trouble getting transportation to medical appointments?: No Do you have trouble paying your heating and electricity bill?: No Do you have trouble taking care of your child, family member or friend?: No Do you have trouble with day-to-day activities such as bathing, preparing meals, shopping, managing finances, etc.?: No Are you currently unemployed and looking for a job?: No Are you interested in more education?: No Please select the resources that you would like help with: None Currently or been in a relationship where the following occur: No concerns reported THRIVE Score: 0 AUDIT C Alcohol Use Questionnaire (AUDIT-C) 1. How often do you have a drink containing alcohol?: Monthly or less 2. How many drinks containing alcohol do you have on a typical day when you are drinking?: 1 or 2 3. How often do you have six or more drinks on one occasion?: Never Total Score: 1 Score Reviewed/Action Taken: Yes YANY-7 AMB Questionnaire YANY-7 Date YANY - 7 assessed: 02/23/25 Feeling nervous, anxious, or on edge: 1 = Several days Not being able to stop or control worryin = Not at all Worrying too much about different things: 1 = Several days Trouble relaxin = Not at all Being so restless that it is hard to sit still: 0 = Not at all Becoming easily annoyed or irritable: 0 = Not at all Feeling afraid as if something awful might happen: 0 = Not at all Total YANY-7 score (0-4 normal; 5-9 mild; 10-14 moderate; 15-21 severe): 2 Source: Developed by Drs. Maxi Liu, Linh Davis, Gumaro Huston and colleagues, with an educational evangelist from [employer]. YANY-7 Assessment Billing YANY-7 Assessment Tool: YANY-7 Assessment 39301 Review of Systems Const Reports no additional complaints Eyes Reports requires corrective lenses ENT Details: Here dental prophylaxis every 6months Reports no additional complaints and Reports Normal hearing present Card Reports no additional complaints Resp Reports no additional complaints GI Denies abdominal pain, Denies melena, Denies bloating, Denies change in bowel habits and Denies heartburn Details: Goes to [facility] for her routine pelvic exam Reports no additional complaints Musc Reports no additional complaints Skin/Breast Denies breast pain, Denies breast mass and Denies rash Neuro Reports no additional complaints, Reports Normal hearing present and Denies Sensory deficit (Neuro) Psych Reports no additional complaints Endo Reports no additional complaints Mahin/Lymph Reports no additional complaints Aller/Immun Reports no additional complaints Physical exam (Primary Care) Vital Signs: Last Vital Signs Temp 98.2 F 02/23/25 10:01 Pulse 81 02/23/25 10:01 Resp 16 02/23/25 10:01 BP 136/82 02/23/25 10:01 Pulse Ox 97 02/23/25 10:01 Oxygen Delivery Method Room Air 02/23/25 10:01 BMI result Body Mass Index 38.9 Tobacco/Smoking Status: Tobacco use Status Tobacco use date assessed 02/23/25 02/23/25 10:04 Patient Tobacco Use Status Former Tobacco user 02/23/25 10:04 Tobacco use type Cigarette 02/23/25 10:04 e-Cigarette/Vaping Use Never Used 02/23/25 10:04 PHQ-9: PHQ-9 Score PHQ-9: Total score 0 02/23/25 10:26 Depression Screening Interpretation: Negative Thrive Assessment: Date of Thrive Assessment Date Thrive assessed 02/23/25 02/23/25 10:04 Currently or been in a relationship where the following occur: No concerns reported Const Other: Alert, oriented x3, pleasant, no acute cardiorespiratory distress, ambulatory normal gait Nutritional Appearance: obese HENMT Head: Yes normocephalic Ears: hearing grossly normal bilaterally, external ears normal, TM's normal bilaterally and EAC's normal General nose exam: Normal external nose present and No nasal discharge present Mouth: Normal oral and palatal mucosa present, oropharynx normal and moist mucous membranes Eyes General: appearance normal, both eyes and all related structures Neck Neck: Yes full ROM, Yes no lymphadenopathy, Yes supple and No tender Thyroid: Thyroid normal Chest Chest palpation & inspection: normal inspection of the chest and normal palpation of entire chest wall Breast/axilla inspection: normal inspection of the breasts Breast/axilla palpation: normal palpation of the breasts and normal palpation of the axillae Resp Auscultation: clear to auscultation bilaterally Cardio Other: S1-S2 present regular rate and rhythm GI Other: Well-healed surgical scar noted on infraumbilical area Palpation (GI): Soft to palpation, nontender, no guarding and no masses General: Yes no CVA tenderness Back/Spine/Pelvis Back: no CVA tenderness and No back tenderness Skin General skin exam: no rashes or lesions noted Neuro General: moves all extremities and normal sensation to monofilament Cranial nerves: Yes Normal hearing present Sensory Exam: No Sensory deficit (Neuro) Extrem Other: Wears compression stockings for her lymphedema on right lower extremity General: Yes no joint enlargement and Yes no calf tenderness Psych Appearance: grossly normal and well kempt Mental Status: mental status grossly normal Speech and movement: Normal speech and movement present Affect: normal affect Coding Level of Care Code Est Pt Prev Care >65y(28464) Diagnoses Annual visit for general adult medical examination with abnormal findings Z00.01 Generalized anxiety disorder F41.1 Essential hypertension I10 Mixed dyslipidemia E78.2 Osteoporosis of lumbar spine M81.0 Lymphedema I89.0 Colon cancer screening Z12.11 Advance directive discussed with patient Z71.89 Additional Codes YANY-7 Assessment Billing - YANY-7 Assessment Tool: YANY-7 Assessment 96416 ([id number]) PHQ-9 - 42581 - PHQ-9 Billing: Yes ([id number]) Assessment & Plan Assessment & Plan (1) Annual visit for general adult medical examination with abnormal findings: Onset Date: ~02/06/24 Code(s): Z00.01 - Encounter for general adult medical examination with abnormal findings Category: Medical Plan: Will check appropriate labs. Recommended dental visit every 6 months and regular eye exams, at least every 2 years. Take adequate calcium in diet and vitamin-D 3 at 2000 IU per cap once a day, in addition to weight-bearing exercises to help maintain good muscle tone and weight control. Currently being followed by Dr. Manley for osteoporosis, on alendronate. Up-to-date with her bone density scan. Instructed to do self-breast exam, and continue to get yearly mammogram, currently up-to-date.. Immunization information provided: Reminded to get her Yearly flu vaccine and COVID booster, recommended getting shingles vaccine starting and getting Prevnar 21. Up-to-date with her Tdap (2) Generalized anxiety disorder: Code(s): F41.1 - Generalized anxiety disorder Category: Medical Plan: Continued on paroxetine 30 mg daily in a.m. (3) Essential hypertension: Code(s): I10 - Essential (primary) hypertension Category: Medical Plan: Blood pressure at goal of less than 130/80. Continue with amlodipine 5 mg daily. Reinforced importance of following a low sodium diet, getting regular exercise, and lowering stress levels. (4) Mixed dyslipidemia: Code(s): E78.2 - Mixed hyperlipidemia Category: Medical Plan: Fasting lipid panel ordered today, currently on rosuvastatin 5 mg taken 1 tablet every other day in addition to adhering to healthy eating habits and getting regular exercise. (5) Osteoporosis of lumbar spine: Code(s): M81.0 - Age-related osteoporosis without current pathological fracture Category: Medical Plan: Currently on alendronate, now followed by Dr. Manley, up-to-date with her bone density scan (6) Lymphedema: Code(s): I89.0 - Lymphedema, not elsewhere classified Category: Medical Plan: Continue wearing compression stockings, advised to massage leg and see if she will be able to get a lymphatic massage and if covered by insurance (7) Colon cancer screening: Code(s): Z12.11 - Encounter for screening for malignant neoplasm of colon Category: Medical Plan: Patient states that she has been seen in May 2024 for pre colonoscopy appointment, but still has not heard regarding her colonoscopy appointment. Patient states that she would prefer to get a Cologuard test, which was ordered today. (8) Advance directive discussed with patient: Code(s): Z71.89 - Other specified counseling Plan: Initiated the conversation about Advanced Directives. Advanced Directives help patients prepare for current and future decisions about their medical treatment and place of care. Discussed with patient that it is a process where a patients current condition and prognosis are reviewed, their wishes for information regarding their illness are elicited, and likely medical dilemmas are presented and options discussed. Healthcare proxy completed today. The form can be am ended as needed, reviewed yearly and make changes as needed Orders: Orders Complete Blood Count Auto Diff 02/23/25 E78.2 - Mixed hyperlipidemia, E83.42 - Hypomagnesemia, F41.1 - Generalized anxiety disorder, I10 - Essential (primary) hypertension, I89.0 - Lymphedema, not elsewhere classified, M81.0 - Age-related osteoporosis without current pathological fracture, Z00.01 - Encounter for general adult medical examination with abnormal findings, Z12.11 - Encounter for screening for malignant neoplasm of colon, Z85.42 - Personal history of malignant neoplasm of other parts of uterus, Z92.3 - Personal history of irradiation Basic Metabolic Panel Fasting 02/23/25 E78.2 - Mixed hyperlipidemia, E83.42 - Hypomagnesemia, F41.1 - Generalized anxiety disorder, I10 - Essential (primary) hypertension, I89.0 - Lymphedema, not elsewhere classified, M81.0 - Age-related osteoporosis without current pathological fracture, Z00.01 - Encounter for general adult medical examination with abnormal findings, Z12.11 - Encounter for screening for malignant neoplasm of colon, Z85.42 - Personal history of malignant neoplasm of other parts of uterus, Z92.3 - Personal history of irradiation Vitamin D 25-OH Total 02/23/25 E78.2 - Mixed hyperlipidemia, E83.42 - Hypomagnesemia, F41.1 - Generalized anxiety disorder, I10 - Essential (primary) hypertension, I89.0 - Lymphedema, not elsewhere classified, M81.0 - Age-related osteoporosis without current pathological fracture, Z00.01 - Encounter for general adult medical examination with abnormal findings, Z12.11 - Encounter for screening for malignant neoplasm of colon, Z85.42 - Personal history of malignant neoplasm of other parts of uterus, Z92.3 - Personal history of irradiation Vitamin B12 and Folate 02/23/25 E78.2 - Mixed hyperlipidemia, E83.42 - Hypomagnesemia, F41.1 - Generalized anxiety disorder, I10 - Essential (primary) hypertension, I89.0 - Lymphedema, not elsewhere classified, M81.0 - Age-related osteoporosis without current pathological fracture, Z00.01 - Encounter for general adult medical examination with abnormal findings, Z12.11 - Encounter for screening for malignant neoplasm of colon, Z85.42 - Personal history of malignant neoplasm of other parts of uterus, Z92.3 - Personal history of irradiation Aspartate Amino Transferase 02/23/25 E78.2 - Mixed hyperlipidemia, E83.42 - Hypomagnesemia, F41.1 - Generalized anxiety disorder, I10 - Essential (primary) hypertension, I89.0 - Lymphedema, not elsewhere classified, M81.0 - Age-related osteoporosis without current pathological fracture, Z00.01 - Encounter for gene [facility] adult medical examination with abnormal findings, Z12.11 - Encounter for screening for malignant neoplasm of colon, Z85.42 - Personal history of malignant neoplasm of other parts of uterus, Z92.3 - Personal history of irradiation Alanine Aminotransferase 02/23/25 E78.2 - Mixed hyperlipidemia, E83.42 - Hypomagnesemia, F41.1 - Generalized anxiety disorder, I10 - Essential (primary) hypertension, I89.0 - Lymphedema, not elsewhere classified, M81.0 - Age-related osteoporosis without current pathological fracture, Z00.01 - Encounter for general adult medical examination with abnormal findings, Z12.11 - Encounter for screening for malignant neoplasm of colon, Z85.42 - Personal history of malignant neoplasm of other parts of uterus, Z92.3 - Personal history of irrad iation Lipid Panel 02/23/25 E78.2 - Mixed hyperlipidemia, E83.42 - Hypomagnesemia, F41.1 - Generalized anxiety disorder, I10 - Essential (primary) hypertension, I89.0 - Lymphedema, not elsewhere classified, M81.0 - Age-related osteoporosis without current pathological fracture, Z00.01 - Encounter for general adult medical examination with abnormal findings, Z12.11 - Encounter for screening for malignant neoplasm of colon, Z85.42 - Personal history of malignant neoplasm of other parts of uterus, Z92.3 - Personal history of irradiation Magnesium 02/23/25 E78.2 - Mixed hyperlipidemia, E83.42 - Hypomagnesemia, F41.1 - Generalized anxiety disorder, I10 - Essential (primary) hypertension, I89.0 - Lymphedema, not elsewhere classified, M81.0 - Age-related osteoporosis without current pathological fracture, Z00.01 - Encounter for general adult medical examination with abnormal findings, Z12.11 - Encounter for screening for malignant neoplasm of colon, Z85.42 - Personal history of malignant neoplasm of other parts of uterus, Z92.3 - Personal history of irradiation Referrals Cologuard Test Z12.11 - Encounter for screening for malignant neoplasm of colon, Z12.12 - Encounter for screening for malignant neoplasm of rectum Medications: Refilled rosuvastatin 5 mg PO Q2D 45 tabs 3RF 90 days E78.2 - Mixed hyperlipidemia amlodipine 5 mg PO DAILY 90 tabs 4RF I10 - Essential (primary) hypertension famotidine 40 mg PO DAILY 90 tabs 1RF
[2025-02-23 10:01] VITALS: BP 136/82; PULSE 81; RESP 16; TEMP 36.8; O2SAT 97; BMI 38.9
--- OUTSIDE RECORDS SUMMARY | 2025-02-23 10:58 | XMS_ITS | Clinical Summary ---
Author Organization [facility] Address [address] [place] [phone] Phone Care Team Providers Care Aircraft Electronics Technical Officer Name Role Phone Amy Schultz MD Primary Care Provider Social History Tobacco Use Types Packs/Day Years Used Date Smoking Tobacco: Never Assessed Education Answer Date Recorded Are you interested in more education? Not on mikal e 09/15/2022 Are you concerned about learning? Not on file 09/15/2022 No 09/15/2022 No 09/15/2022 Digital Access Answer Date Recorded No 10/17/2022 No 10/17/2022 Reliable internet access at home? Not on file 10/17/2022 Device with a working camera? Not on file Comments Unknown Sex and Gender Information Value Date Recorded Sex Assigned at Not on file Legal Sex Female 3:14 PM EDT Gender Identity Not on file Sexual Orientation Not on file Plan of Treatment Health Maintenance Due Date Last Done Comments LIPID PANEL 1960 DEPRESSION SCREENING 1972 SMOKING Hx and SMOKELESS TOBACCO SCREENING 01/17/1973 HEPATITIS C SCREENING 01/17/1978 HIV ONE-TIME SCREENING (18-65 YEARS) 01/17/1978 MAMMOGRAM 2000 COLOGUARD 01/17/2005 COLONOSCOPY 01/17/2005 COLORECTAL CANCER SCREENING 01/17/2005 FIT TEST 01/17/2005 FOBT 01/17/2005 SIGMOIDOSCOPY 01/17/2005 VIRTUAL COLONOSCOPY 01/17/2005 PNEUMOCOCCAL VACCINES (50+ years) (1 of 1 - PCV) 01/17/2010 ZOSTER VACCINES (1 of 2) 01/17/2010 Adult Td,Tdap Booster 01/20/2020 01/19/2010 INFLUENZA VACCINE (#1) 2024 , 02/16/2020, 03/18/2018, Additional history exists OSTEOPOROSIS SCREENING INITIAL (ONE-TIME) 01/17/2025 COVID-19 VACCINE ( season) 2025 08/18/2020, 07/28/2020 RSV VACCINE (1 - 1-dose 75+ series) 01/17/2035 HEPATITIS A VACCINES Aged Out No long er eligible based on patient's age to complete this topic HIB VACCINES Aged Out No longer eligi ble based on patient's age to complete this topic MENINGOCOCCAL VACCINES (ACWY) Aged Out No longer eligible based on patient's age to complete this topic MENINGOCOCCAL VACCINES (B) Aged Out N o longer eligible based on patient's age to complete this topic Medical Devices Not on file [place] [address] [place] [address] [place] [address] [email or web address] [facility] [employer] [address] [place] [address] [employer] [facility] DIRECT Care Teams [employer] Technical Officer Relationship Specialty Start Date End Date Amy Schultz MD [address] [place] [id number] PCP - General Internal Medicine 11/11/19 Additional Source Comments The information contained in this document represents components of the legal health record. It is not the complete legal health record.[facility]
== END 2025-02-23 10:56 | disposition home or self-care (01) ==
PROVIDERS: PCP Internal Medicine; Visit Provider Internal Medicine
DX: Z00.01 Encounter for general adult medical examination with abnormal findings (principal); F41.1 Generalized anxiety disorder; I10 Essential (primary) hypertension; E78.2 Mixed hyperlipidemia; M81.0 Age-related osteoporosis without current pathological fracture; I89.0 Lymphedema, not elsewhere classified; Z12.11 Encounter for screening for malignant neoplasm of colon; Z71.89 Other specified counseling

== ENCOUNTER 2025-02-23 09:36 | Outpatient (REF) | payer MEDICARE, SELFPAY ==
[2025-02-23 13:28] LABS: MANUAL DIFF FLAG NO
[2025-02-23 13:29] LABS: Hematocrit 42.3 % (37.0-47.0); Hemoglobin 14.3 g/dl (12.0-16.0); Imm Gran Abs Auto 0.03 X10*3/uL (0.00-0.03); Imm Gran Pct Auto 0.6 % (0.0-0.4); Lymphocytes Absolute Auto 1.0 X10*3/uL (1.2-4.9); Mean Corpuscular HGB Conc 33.8 g/dl (31.0-35.0); Mean Corpuscular Hemoglobin 29.7 pg (27.0-33.0); Mean Corpuscular Volume 87.9 fL (80.0-98.0); NRBC Abs Auto 0.000 X10*3/uL (0.0-0.012); NRBC Pct Auto 0.0 /100WBC (0.0-0.2); Platelet Count 241 X10*3/uL (160-400); Red Blood Count 4.81 X10*6/uL (4.20-5.50); White Blood Count 5.4 X10*3/uL (4.8-10.8)
[2025-02-23 13:53] LABS: Alanine Aminotransferase 11 U/L (0-31); Anion Gap 11 (12-20); Aspartate Amino Transferase 19 U/L (5-31); Blood Urea Nitrogen 23 mg/dL (9-16); Calcium 9.4 mg/dL (8.4-10.2); Carbon Dioxide 26 mmol/L (22-29); Chloride 107 mmol/L (96-108); Cholesterol 201 mg/dL (<200); Estimated Glomerular Filt Rate 53; HDL Cholesterol 52 mg/dL (>40); Magnesium 1.8 mg/dL (1.6-2.6); Potassium 4.4 mmol/L (3.3-5.1); Sodium 140 mmol/L (135-145); Triglycerides 131 mg/dL (<150)
[2025-02-23 19:35] LABS: Folate 5.3 ng/mL (> or = 4.0); Vitamin B12 > 2000 pg/mL (200-900)
== END 2025-02-23 09:37 | disposition home or self-care (01) ==
LOC: HO.HMGCLDS 09:36
PROVIDERS: PCP Internal Medicine; Visit Provider Internal Medicine
DX: Z00.01 Encounter for general adult medical examination with abnormal findings (principal); F41.1 Generalized anxiety disorder; I10 Essential (primary) hypertension; M81.0 Age-related osteoporosis without current pathological fracture; E83.42 Hypomagnesemia; I89.0 Lymphedema, not elsewhere classified; E78.2 Mixed hyperlipidemia; Z92.3 Personal history of irradiation; Z85.42 Personal history of malignant neoplasm of other parts of uterus; Z71.89 Other specified counseling
CPT/HCPCS: 36415; 80048; 80061; 82306; 82607; 82746; 83735; 84450; 84460; 85025; 96127; 99397